=== PATIENT | male | born 1955 | race Caucasian/White ===

== ENCOUNTER 2024-06-15 14:28 | Outpatient (AMB) | payer OTHER, SELFPAY ==
--- NOTE | 2024-06-15 14:32 | MHC.OFFVIS ---
Vital Signs 06/15/24 14:34 Height 5 ft 6 in Weight 236 lb BMI 38.1 BP 163/77 H Blood Pressure Location Lt brachial Position Sitting Respiration 16 Pulse 68 Pulse Source Pulse Oximeter Pulse Oximetry (%) 96 Oxygen Delivery Method Room Air Intake Visit Reasons: Low back pain Health Promoter Required: No Health Promoter Name: Dr. Munoz speaks [place] Allergies tramadol Adverse Reaction (Severe, Verified 06/15/24 14:36) Itching Medication List - Last Reconciled 06/15/24 by Daina Oscar, SALVATORE ibuprofen 200 mg PO Q6H PRN losartan 25 mg PO DAILY HPI Comments Details: Wesley is very pleasant [place]-speaking 69 years old gentleman who presents in my office today with complains on [id number] lower back pain severe pain in the suprapubic area associated with sitting. He reports his pain is suprapubic area is bothering him the most. He denies any pain while standing or laying down. He denies association of his pain with urination or defecation. Denies pain increase with straining down. He reports that if he sits for 15-20 minutes his pain is 4 to 5/10. With longer sitting his pain will become 8 to 9/10. He is able to sleep normally, he can not do activities of daily living. He is able to take care of himself but he can not function normally. He is retired individual. He reports that movements aggravate his pain. In terms of tissue damage he reports his pain as stabbing, cramping, dull, tight, sensation. She was evaluated by urologists, he was sent for the CT scan of the abdomen and pelvis with and without contrast results of the dictated as below. Hypertrophy of the bladder wall was suspected on that CT scan, there is also small umbilical hernia dictated. Urologist did also cystoscopy results of which are not available for me however he states that cystoscopy was not demonstrating anything. He wants to go for 2nd opinion with the [facility] [place]. He never had an MRI of the abdomen or lower back. He never had an x-ray of the lower back. He never had any injections to alleviate his pain. His past medical history significant for headaches, hypertension, dizziness and fainting. His surgical history significant for hemorrhoids rotator cuff repair and skin cancer on the face surgery. He denies smoking cigarettes denies drinking alcohol denies caffeinated beverages and denies recreational drugs. Review of Systems Const Reports as per HPI ENT Reports Normal hearing present Card Reports no additional complaints Resp Reports no additional complaints GI Reports no additional complaints Reports as per HPI Musc Reports as per HPI Neuro Reports no additional complaints, Reports Normal hearing present, Denies Abnormal speech present, Denies confusion and Denies Sensory deficit (Neuro) Psych Reports no additional complaints and Denies confusion Physical Exam Vital Signs: Last Vital Signs Pulse 68 06/15/24 14:34 Resp 16 06/15/24 14:34 BP 163/77 H 06/15/24 14:34 Pulse Ox 96 06/15/24 14:34 Oxygen Delivery Method Room Air 06/15/24 14:34 BMI result Body Mass Index 38.1 Const General: no acute distress; No confusion Nutritional Appearance: obese morbidly obese Orientation/consciousness: patient oriented x3 and No confusion Eyes General: appearance normal, both eyes and all related structures Pupils: Equal, round and reactive pupils present EOM: EOMs intact bilaterally Neck Neck: Yes full ROM Chest Chest palpation & inspection: normal inspection of the chest Resp Effort & Inspection: normal respiratory effort, able to speak in complete sentences, normal respiratory pattern, no audible wheezes and no cough Cardio Jugular venous distension: no JVD GI Other: On inspection there is diastasis of the rectus muscles in the upper portion of the abdominal cavity. There is a small umbilical hernia on palpation of the umbilicus and there is also significant sensation of the pushing with straining and coughing in the projection of the bilateral inguinal canal. Neuro General: patient oriented x3, gait normal and No confusion Cranial nerves: Yes CN's II-XII intact bilaterally, Yes Equal, round and reactive pupils present, Yes Normal hearing present and Yes Ability to bilaterally elevate shoulders present Speech: No Abnormal speech present Gait exam (Neuro): Normal gait present Motor exam (neuro): 5/5 motor strength present throughout Sensory Exam: No Sensory deficit (Neuro) Extrem General: No pedal edema Psych Speech and movement: Normal speech and movement present Affect: normal affect Attitude: cooperative Thought process: Normal thought process present Thought content: Normal thought content present Insight: Good insight present (Psych) Judgement: Good judgement present (Psych) Results Reviewed Results Reviewed: CT abdomen and pelvis with and without IV contrast 02/11/2023. 67 years old with microscopic hematuria. Findings: Renal calculi: None, renal mass none, ureteral distension and contrast opacification adequate what urethral distention and contrast opacification. None of urethral masses of filling defects, Urinary bladder: No mass, calculi or blood clot. Mild diffuse apparent wall thickening of the urinary bladder wall is likely due to under distention versus bladder hypertrophy. Lung bases: Mild bilateral dependent atelectasis. No pleural effusion. Normal heart size. No pericardial effusion. Liver: Normal in attenuation and morphology. No suspicious lesions. Gallbladder no CT evidence of gallbladder pathology. Bile ducts no biliary duct dilatation. Spleen: Normal in size. Pancreas: Few scattered calcifications along the pancreatic head and body, probably a sequela of chronic pancreatitis. Adrenal glands: No nodule. Reproductive organs: Prostate gland is normal in size with few scattered coarse calcifications, nonspecific. Seminal vesicles unremarkable. Stomach, small bowel, and large bowel: Stomach and small bowel within normal limits. Apparent diffuse circumferential thickening of the hepatic flexure of the colon could be partially due to under distention however and underlying inflammatory versus less likely neoplastic process is not excluded. Correlation with recent colonoscopy recommended. Appendix not seen but no evidence of acute appendicitis. Peritoneum and retro. A new no ascites or pneumoperitoneum. No omental or mesenteric lesions. Lymph nodes no enlarged lymph nodes. Blood vessels: Mild vascular calcifications. 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 cm in diameter on each side. No evidence of venous thrombosis. Abdominal and pelvic wall soft tissues: Tiny fat containing of umbilical hernia Bones no acute abnormality. Impression no CT evidence of calculi or abnormal filling defect in bilateral kidneys ureter or urinary bladder to explained patient microscopic hematuria. Diffuse circumferential thickening of hepatic flexure of the colon without associated fat stranding is nonspecific and although could be due to under distention can not exclude underlying inflammatory or neoplastic process. Correlation with recent colonoscopy recommended. Mild diffuse apparent thickening of the urinary bladder wall maybe due to under distention and or bladder hypertrophy. 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 Assessment & Plan Assessment & Plan (1) Low back pain: Code(s): M54.50 - Low back pain, unspecified Category: Medical (2) Suprapubic abdominal pain: Code(s): R10.2 - Pelvic and perineal pain Category: Medical (3) Bladder wall thickening: Code(s): N32.89 - Other specified disorders of bladder Category: Medical (4) Microhematuria: Code(s): R31.29 - Other microscopic hematuria Category: Medical (5) Inguinal hernia bilateral, non-recurrent: Code(s): K40.20 - Bilateral inguinal hernia, without obstruction or gangrene, not specified as recurrent Category: Medical Plan I will send this patient for the x-ray of the lumbar spine. I also will send this patient for urological 2nd opinion. Because of his umbilical hernia and possible bilateral inguinal hernia will send him for surgical consult to [facility] [place].. I also will send him for PSA lab work. He will sign medical information release note today and we will obtain information from his prior urologist office. If all this investigational lab work and studies will go out negative for suprapubic pain I will offer him a trial of the Nevro spinal cord stimulator to help his suprapubic pain.. Orders: Orders PSA,Total (Free>4and<10) Today R10.2 - Pelvic and perineal pain, R31.29 - Other microscopic hematuria XR lumbar spine 6V w bending Today M54.50 - Low back pain, unspecified Referrals Urology Referral N32.89 - Other specified disorders of bladder, R10.2 - Pelvic and perineal pain, R31.29 - Other microscopic hematuria General Surgery Referral K40.20 - Bilateral inguinal hernia, without obstruction or gangrene, not specified as recurrent Patient Instructions: I here by testify that I spent 45 minutes in conversation with this patient as well as evaluating prior records, planning his here and organizing this note. Coding Level of Care Code New Pt Level 4 (12519) Diagnoses Low back pain M54.50 Suprapubic abdominal pain R10.2 Bladder wall thickening N32.89 Microhematuria R31.29 Inguinal hernia bilateral, non-recurrent K40.20
[2024-06-15 14:34] VITALS: BP 163/77; PULSE 68; RESP 16; O2SAT 96; BMI 38.1
--- OUTSIDE RECORDS SUMMARY | 2024-06-15 17:14 | XMS_ITS | Clinical Summary ---
Author Organization [facility] Address [address] [place] [address] Care Team Providers Care Corporate Coordinator Name Role Phone Sowmya Odom PA-C Primary Care Provider [phone] Source Comments PLEASE NOTE, if this patient is a minor, it may be UNLAWFUL to discuss sensitive information that is contained in these records (such as FAMILY PLANNING, MENTAL HEALTH or SUBSTANCE ABUSE) with the minor patient's parent or other person without the patient's specific authorization.[facility] Allergies Active Allergy Reactions Criticality Noted Date Comments Tramadol Itching 02/17/2013 Medications miscellaneous medical supply miscIndications:Ch ronic low back pain without sciatica, unspecified back pain laterality by miscellaneous route 2 (two) times daily SALONPAS pain relieving patch LARGE, disp 60 patches/month, dx lumbar and hip neuralgia, fax to medline 60 Each 11 07/19/19 20 Active miscellaneous medical supply miscIndications:Ch ronic midline low back pain without sciatica by miscellaneous route once daily dx lumbar disc disease M54.5, bed assist handle 1 Each 04/23/19 21 Active miscellaneous medical supply miscIndications:Ch ronic midline low back pain without sciatica by miscellaneous route once daily dx lumbar disc disease M54.5, single point cane 1 Each 04/23/19 21 Active miscellaneous medical supply miscIndications:Ch ronic midline low back pain without sciatica by miscellaneous route once daily Suction cup grab bars for the shower, disp 2, dx lumbar disc disease M54.5 2 Each 04/23/19 21 Active miscellaneous medical supply miscIndications:Ch ronic low back pain without sciatica, unspecified back pain laterality by miscellaneous route once daily Sacroiliac Joint Belt, disp 1, dx low back pain/SI joint dysfunction, lifetime need 1 Each 07/19/19 21 Active olmesartan (BENICAR) 20 mg tabletIndications: Essential hypertension, benign Take 1 Tablet by mouth nightly at bedtime 90 Tablet 1 04/03/19 24 Active rosuvastatin (CRESTOR) 10 mg tabletIndications: Mild hyperlipidemia Take 1 Tablet by mouth once daily 90 Tablet 1 10/19/19 24 Active MISCELLANEOUS MEDICAL SUPPLY MISC by miscellaneous route daily. Personal care wipes, vrra847/month, dx bowel and bladder care 200 Each 12/25/19 24 Active MISCELLANEOUS MEDICAL SUPPLY MISCIndications:Mi xed incontinence by miscellaneous route daily. Adult pull ups disp 120/month, dx mixed incontinence 120 Each 12/25/19 24 Active MISCELLANEOUS MEDICAL SUPPLY MISCIndications:Mi xed incontinence by miscellaneous route daily. Large gloves, [id number]/month, dx mixed incontinence 100 Each 12/25/19 24 Active ketoconazole (NIZORAL) 2 % shampooIndications :Tinea versicolor Apply topically once daily as needed for itching 120 mL 6 01/28/20 24 Active MISCELLANEOUS MEDICAL SUPPLY MISCIndications:Ch ronic low back pain without sciatica, unspecified back pain laterality by miscellaneous route daily. Juve cruz, disp 60/month, dx osteoarthritis, [facility] fax [phone]. 60 Each 01/28/20 24 Active Active Problems Problem Noted Date Diagnosed Date First degree AV block on EKG 01/202304/03/2023 Essential hypertension, benign 07/19/2019 Non morbid obesity 05/10/2018 Pulmonary nodule, left on CX R 03/02/2017 [facility] 03/17/2017 Rotator cuff tear, right, [facility] Dr. Higginbotham 03/201504/17/2015 History of Lyme disease 08/02/2014 Low back pain with right radiculopathy,MRI 4 04/26/2014 Overview (04/26/2014): Result type: MRI Lumbar Spine W/O Contrast Result date: 05 Aug 2013 7:35 Result status: Auth (Verified) Result title: MRI Lumbar Spine W/O Contrast Performed by: Trupti Arauz MD on 05 Aug 2013 12:14 Verified by: Trupti Arauz MD on 05 Aug 2013 12:14 Encounter info: [id number], [facility], 08/05/2013 - * Final Report * Reason For Exam LBP with right lateral LE pain/Numbness;LBP with right lateral LE pain/Numbness RESULT: MRI Lumbar Spine W/O Contrast [facility] VISIT NUMBER :[id number] PATIENT NAME : Sandy Spencer DATE OF : 1955 DATE OF EXAM : 08/05/2013 REFERRING PHYSICIAN : [facility] [address] [place] [address] RESULTS PREFERENCE : Reports via Fax to [phone]. Images on CD via Mail. 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 EXAM : MR - LUMBAR SPINE (C-) CPT 17731 - Final Report HISTORY: Lower back pain with right leg pain and paresthesias. COMPARISON: MRI of the lumbar spine, 03/30/2007. FINDINGS: There is very slight levoscoliosis of the mid lumbar spine. Alignment and curvature are otherwise normal. Vertebral body heights are preserved. There is disc desiccation from L2 to S1 with minimal disc space narrowing at L5-S1. Small multilevel anterior osteophytes are noted. Focal Modic type I endplate changes are seen at L4-L5 toward the right. Remaining marrow signal is unremarkable. The conus ends at L1-L2. At L1-L2 there is no significant canal stenosis or neural foraminal stenosis. At L2-L3 there is minimal disc bulging and facet spurring without significant canal stenosis. A broad-based left foraminal protrusion is seen with annular tear resulting in mild left neural foraminal stenosis. At L3-L4 there is a minimal diffuse disc bulge and mild facet spurring without significant canal stenosis. A small right foraminal protrusion is seen with annular tear resulting in mild to moderate right neural foraminal stenosis. Minimal left neural foraminal stenosis is also noted. At L4-L5 there is a diffuse disc bulge with a small right paracentral protrusion with annular tear. There is no significant canal stenosis though there may just be contact of the descending right L5 nerve root in the lateral recess. Mild bilateral facet spurring is also seen contributing to mild bilateral neural foraminal stenosis. At L5-S1 there is a diffuse disc bulge with left paracentral annular tear and facet spurring without significant canal stenosis. Marginal osteophyte contributes to moderate left neural foraminal stenosis with contact of the exiting left L5 nerve root. The visualized retroperitoneal soft tissues are unremarkable. IMPRESSION: Stable multilevel degenerative changes compared to 2008. Please see detailed levels above. ----- PHYSICIAN : TRUPTI ARAUZ MD (Signature on file) 08/05/2013 Signature Line Dictated By: Trupti Arauz MD Dictated Date/Time: 08/05/13 12:14 p Reviewed By: Trupti Arauz MD Signed By: Trupti Arauz MD Signed Date/Time: 08/05/13 12:14 pm Transcribed By: TS Transcribed Date/Time: 08/05/13 12:14 pm MRI Lumbar Spine W/O Contrast This document has an image Right lower leg neuropathy with negative EMG 11/1504/26/2014 Overview (04/26/2014): Result type: Electromyogram/Nerve Conduction Study Result date: 16 November 2013 15:08 Result status: Modified Result title: EMG Nerve Conduction Study Performed by: Yaron Valdez MD on 16 November 2013 15:08 Verified by: Yaron Valdez MD on 16 November 2013 22:19 Encounter info: [id number], [facility] [place] [facility], 11/16/2013 - 11/16/2013 Contributor system: [employer] * Final Report * EMG Nerve Conduction Study (Verified) [facility] ELECTROMYOGRAPHY REPORT Referring Provider: Yeyo Pascal M.D. EMG Physician: Yaron Valdez M.D. ditch digger: SHREYA Date of Study: 11/16/2013 Limb Temperature: Warmed with hot packs to greater than 34?? C Height: 5' 8 Weight: 190 lbs Order ID: [id number] IMPRESSION: The study is normal. There is no evidence of a right midlumbar to upper sacral radiculopathy, plexopathy or distal right lower extremity polyneuropathy. 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 He has right lower back pain that radiates down his right leg and right foot burning discomfort. Examination shows normal strength. Patellar and Achilles tendon reflexes are symmetrical. Light touch sensation is diminished over his entire right leg compared to his left leg. The study is requested for evaluation of a right lumbosacral radiculopathy. Comparison normal nerve conduction values, nerve conduction tables and waveforms, and muscle table are included with the complete printed report. Selected left side testing was performed for the purpose of comparison to the right side. A Haitian construction code administrator was present during testing. His granddaughter, Evette, was present during the procedure. SUMMARY: The right peroneal and tibial motor distal latencies, distal amplitudes and nerve conduction velocities are normal. The right peroneal across fibula nerve conduction velocity is normal. The right peroneal and tibial minimum F response latencies are normal. The right tibial minimum H reflex latency is normal. There is no significant interside difference compared to the left side. The right sural and superficial peroneal antidromic sensory amplitudes and peak distal latencies are normal (the left superficial peroneal amplitude and peak distal latency are normal and there is no significant comparison interside asymmetry. Concentric needle EMG testing was performed of proximal and distal right leg muscles including those innervated by L2-S1 nerve roots. The right L3-S1 paraspinal muscles were examined. Insertional activity is normal. There is no abnormal spontaneous activity. Motor unit potential recruitment and activation patterns are normal. Motor unit potential configurations are normal. There is no evidence of denervation or reinnervation. The procedure was well tolerated, there were no complications, and he appeared well upon completion of the procedure. Dictated by: Yaron Valdez M.D. Signing Clinician: Yaron Valdez M.D. Dictated: 11/16/2013 15:08:23 Transcribed: 11/16/2013 18:53:00 Transcribed by: EMERALD DocID: [id number] PRELIMINARY REPORT UNLESS MANUALLY/ELECTRONICALLY SIGNED CC:Obed Chavira M.D. [facility] [address] [place] [address], [id number] Yeyo Pascal M.D. [address], [address] [place], [address] S/P colonoscopy 200604/26/2014 Overview (04/26/2014): Result type: Special Procedure/Gastro Note Result date: 09 July 2006 1:45 Result status: Auth (Verified) Result title: NOTE Encounter info: [id number], [facility] [place] [facility], 07/09/2006 - 07/09/2006 Contributor system: [employer] * Final Report * NOTE Colonoscopy Report Endoscopist(s): Ronaldo Lam MD Date: June Ref. Phys.: GALINA MURRIETA MD; Juan Luis Osman MD Patient: SNADY SPENCER Assisting Nurse(s)/ Other Personnel: Cat Concepcion RN (RN) RICHARD Doan (test design engineer) Instrument: [id number] ([id number]) Date: 1955 (51 years) Account: [id number] History: Please see office H&P Medications: Meperidine 50mg Midazolam 3mg Indications: Screening Colonoscopy Procedure: The procedure, indications, preparation and potential complications were explained to the patient, who indicated his understanding and signed the corresponding consent forms. The patient was administered moderate sedation. The patient was placed in the left lateral decubitus position and the colonoscope was introduced through the rectum and advanced under direct visualization until the cecum was reached. Careful visualization of the colon was performed as the colonoscope was withdrawn. The colonoscope was retroflexed within the rectum. The procedure was not difficult. The quality of the preparation was suboptimal. Visualization of the cecum and proximal ascending colon was poor. The patient tolerated the procedure well. The digital exam was abnormal. Internal hemorrhoids. There were no complications. Findings: Protruding Lesions Large non-bleeding grade 1 internal hemorrhoids were noted. Other Unable to examine the cecum and proximal ascending colon due to poor prep and inability to advance the scope due to a long, tortuous colon. Impression: Grade 1 internal hemorrhoids Otherwise normal colonoscopy to cecum Recommendations: Would obtain ACBE to clear thr ight colon. If normal then repeat colon in 10 years, if abnormal would re-attempt colonoscopy with Double balloon enteroscope to achieve cecal intubation. Ronaldo Lam MD Case documented on 07/09/2006 12:58:26 PM Patient: SANDY SPENCER ([id number] ) Encounters Date Type Department Care Team Description 04/27/2024 7:40 AM EST Telemedicine Visit [address] [address] Sowmya Odom PA-C First degree AV block on EKG 01/2023 (Primary Dx); Essential hypertension, benign; Non morbid obesity; Chronic low back pain without sciatica, unspecified back pain laterality; History of Lyme disease; Labile blood pressure; Atypical chest pain; Mild vitamin D deficiency; Microhematuria from Last 3 Months Social History Tobacco Use Types Packs/Day Years Used Date Smoking Tobacco: Never Smokeless Tobacco: Never Tobacco Cessation:Counseling Given: Not Answered Alcohol Use Standard Drinks/Week Comments No 0 (1 standard drink = 0.6 oz pur e alcohol) Social Connections Answer Date Recorded Connectedness 1 04/27/2024 Financial Resource Strain Answer Date R ecorded Financial Resource Strain 1 2024 Stress Answer Date Recorded Stress 1 04/27/2024 Physical Activity Answer Date Recorded Physical Activity 0 11/06/2018 Food Insecurity Answer Date Recorded Food 1 04/27/2024 Transportation Needs Answer Date Record ed Transportation 1 04/27/2024 Housing Stability Answer Date Recorded Housing 1 04/27/2024 Safety and Environment Answer Date Spencer rded Safety 0 01/21/2023 Utilities Answer Date Recorded Utilities 1 04/27/2024 Employment Answer Date Recorded Employment 0 11/06/2018 Sex and Gender Information Value Date Recorded Sex Assigned at Male 06/16/2017 8:31 AM PDT Legal Sex Male 11:36 AM PDT Gender Identity Male 06/16/2017 8:31 AM PDT Sexual Orientation Straight 06/16/2017 8: 31 AM PDT Last Filed Vital Signs Vital Sign Reading Time Taken Comments Blood Pressure 112/70 09/08/2023 1:07 PM EDT Pulse 58 09/08/2023 1:07 PM EDT Temperature 36.7 ??C (98 ??F) 09/08/2023 1:07 PM EDT Respiratory Rate 16 09/08/2023 1:07 PM EDT Oxygen Saturation 98% 09/08/2023 1:07 PM EDT Inhaled Oxygen Concentration - - Weight 98.4 kg (217 lb) 09/08/2023 1:07 PM EDT Height 170.2 cm (5' 7 ) 09/08/2023 1:07 PM EDT Body Mass Index 33.99 09/08/2023 1:07 PM EDT Plan of Treatment Health Maintenance Due Date Last Done Comments CT Colonography 1998 Fecal DNA 1998 Flexible Sigmoidoscopy 1998 Imm-Pneumococcal 65+ (1 of 1 - PCV) 05/22/2003 Imm-Zoster, Recombinant (1 of 2) 05/22/2003 FIT/gFOBT 05/10/2014 05/10/2013 (Declined) Falls Prevention 2018 Imm-Influenza (#1) 2023 04/26/2014 (D eclined), 05/10/2013 (Declined) Medicare Annual Wellness Visit 04/03/2024 0 04/03/2023, 08/29/2021, 08/02/2014 Lipid Screening 09/07/2024 09/08/2023, 05/14, 08/29/2021, Additional history exists Tobacco Screening 04/27/2025 04/27/2024, , 05/23/2022 Imm-DTaP/Tdap/Td (2 - Td or Tdap) 02/16/2026 016 Diabetes Screening 09/07/2026 09/08/2023, 1 , 08/29/2021, Additional history exists Colonoscopy 03/24/2033 03/24/2023 Colorectal Cancer Screening 03/24/2033 Hepatitis C Screening Completed 05/14/2013 Alcohol and Drug Screen Completed 04/27/19, 04/03/2023, 01/20/2023, Additional history exists Depression Annual Screen Completed 025, 04/26/2014 (Declined) [id number] Discontinued Procedures Procedure Name Priority Date/Time Associated Diagnosis Comments COMPREHENSIVE METABOLIC PANEL Routine 09/08/2023 1:27 PM EDT Suprapubic pain Bladder wall thickening Chronic low back pain without sciatica, unspecified back pain laterality Non morbid obesity LIPID PANEL Routine 09/08/2023 1:27 PM EDT Suprapubic pain Bladder wall thickening Chronic low back pain without sciatica, unspecified back pain laterality Non morbid obesity HISTORIC COLONOSCOPY 03/24/2023 3:00 AM EST HEPATITIS A,B,C PANEL Routine 05/14/2013 9:18 AM EST Dizziness from Last 3 Months or Most Recently Relevant to Health Maintenance Results * (ABNORMAL) LIPID PANEL (09/08/2023 1:27 PM EDT) Pathologist [facility] CHOLESTEROL, TOTAL 228(H) <200 mg/dL [facility] HDL CHOLESTEROL 41 > OR = 40 mg/dL [facility] TRIGLYCERIDES 182(H) <150 mg/dL [facility] LDL-CHOLESTEROL 155(H) 99 mg/dL (calc) [facility] Comment: Reference range: <100 Desirable range <100 mg/dL for primary prevention; ?? <70 mg/dL for patients with CHD or diabetic patients with > or = 2 CHD risk factors. LDL-C is now calculated using the Eliezer-Aron calculation, which is a validated novel method providing better accuracy than the Friedewald equation in the estimation of LDL-C. Eliezer SS et al. JACOB. 2013;310(19): 5991-3586 (http://education.AdReady/faq/NPR811) CHOL/HDLC RATIO 5.6(H) <5.0 (calc) [facility] NON-HDL CHOLESTEROL 187(H) <130 mg/dL (calc) [facility] Comment: For patients with diabetes plus 1 major ASCVD risk factor, treating to a non-HDL-C goal of <100 mg/dL (LDL-C of <70 mg/dL) is considered a therapeutic option. Blood Blood / Unknown 09/08/2023 1 :27 PM EDT 09/08/2023 1:28 PM EDT Narrative [employer] [facility] - 09/09/2023 3:52 AM EDT FASTING:NO us Sowmya Odom PA-C LAB - BLOOD DRAW Final Resul t [facility] [address] [address], [employer] [facility] [address] [place] [address] * COMPREHENSIVE METABOLIC PANEL (09/08/2023 1:27 PM EDT) [facility] GLUCOSE 91 65 - 139 mg/dL [employer] [facility] Comment: ?Non-fasting reference interval UREA NITROGEN (BUN) 11 7 - 25 mg/dL [employer] [facility] CREATININE (blood) 1.24 0.70 - 1.28 mg/dL [facility] EGFR 63 > OR = 60 mL/min/1. 73m2 [facility] BUN/CREATININE RATIO SEE NOTE: [employer] [facility] Comment: ?? Not Reported: BUN and Creatinine are within ?? reference range. ? SODIUM 140 135 - 146 mmol/L [facility] POTASSIUM 4.7 3.5 - 5.3 mmol/L [facility] CHLORIDE 106 98 - 110 mmol/L [facility] CARBON DIOXIDE 29 20 - 32 mmol/L [facility] CALCIUM 9.6 8.6 - 10.3 mg/dL [facility] PROTEIN, TOTAL 7.1 6.1 - 8.1 g/dL [facility] ALBUMIN 4.2 3.6 - 5.1 g/dL [facility] GLOBULIN 2.9 1.9 - 3.7 g/dL (calc) [facility] ALBUMIN/GLOBULI N RATIO 1.4 1.0 - 2.5 (calc) [facility] BILIRUBIN, TOTAL 0.4 0.2 - 1.2 mg/dL [facility] ALKALINE PHOSPHATASE 71 35 - 144 U/L [employer] [facility] AST 12 10 - 35 U/L [employer] [facility] ALT 10 9 - 46 U/L [facility] Blood Blood / Unknown 09/08/2023 1 :27 PM EDT 09/08/2023 1:28 PM EDT Narrative [facility] - 09/09/2023 3:52 AM EDT FASTING:NO Sowmya Odom PA-C LAB - BLOOD DRAW Edited Resu lt - Final [facility] [address] [address], [place] [facility] [address] [place] [address] * HISTORIC COLONOSCOPY (03/24/2023 3:00 AM EST) 03/24/2023 3:00 AM EST Sowmya Odom PA-C PROCEDURES Final Result * (ABNORMAL) HEPATITIS A,B,C PANEL (05/14/2013 9:18 AM EST) HEPATITIS B SURFACE ANTIBODY NEGATIVE NEGATIVE [facility] HEPATITIS B SURFACE ANTIGEN NEGATIVE NEGATIVE [facility] HEPATITIS C VIRUS ANTIBODY NEGATIVE NEGATIVE [facility] HEPATITIS A ANTIBODY TOTAL POSITIVE(A) NEGATIVE [facility] HEPATITIS B CORE ANTIBODY NEGATIVE NEGATIVE [facility] Blood specimen (specimen) Blood / Unknown 05/14/2013 9:18 AM EST 05/14/2013 9:18 AM EST Narrative [facility] - 05/16/2013 8:53 AM EST [employer] [address] [place] [address] PT ID [id number] ORD# [id number] Sowmya Odom PA-C LAB - BLOOD DRAW Edited [email or web address] [address] [place] [address], from Last 3 Months or Most Recently Relevant to Health Maintenance Insurance [facility] Member Subscriber Plan / Payer (Ef fective 2018-Present) Name:Sandy Spencer Relation to Subscriber:Self Name:Sandy Spencer Payer ID:[id number] Group ID:Not on file Type:Indemnity Address: [facility] [address] [address] Care Teams Corporate Coordinator Relationship Specialty Start Date End Date Sowmya Odom PA-C [address] [place] [address] PCP - General Internal Medicine 05/10/13
== END 2024-06-15 15:01 | disposition home or self-care (01) ==
LOC: HO.PMC 14:28
PROVIDERS: PCP Physician Assistant; Referring Provider Physician Assistant; Visit Provider Anesthesiology
DX: M54.50 Low back pain, unspecified (principal); R10.2 Pelvic and perineal pain; N32.89 Other specified disorders of bladder; R31.29 Other microscopic hematuria; K40.20 Bilateral inguinal hernia, without obstruction or gangrene, not specified as recurrent
CPT/HCPCS: 99204

== ENCOUNTER → 2024-06-15 14:28 | Outpatient (BNVA) | payer OTHER, SELFPAY | PROVIDERS: PCP Physician Assistant; Referring Provider Physician Assistant; Visit Provider Anesthesiology | DX: M54.50 Low back pain, unspecified (principal); R10.2 Pelvic and perineal pain; N32.89 Other specified disorders of bladder | CPT/HCPCS: 99202 ==

== ENCOUNTER 2024-08-03 09:53 | Outpatient (REF) | payer OTHER, SELFPAY ==
--- NOTE | ~2024-08-03 | XR_ITS ---
CLINICAL HISTORY: M54.50 - Low back pain, unspecified 9 views lumbar spine Comparison: None Findings: Mild convex left mid lumbar curvature on the AP view. Neutral lateral view demonstrates anatomic alignment. No abnormal motion with flexion or extension. Dkhr-ic-khvwbhmq multilevel degenerative disc disease with moderate to severe multilevel degenerative facet disease. This is most extensive at L4-5 and L5-S1. Bones are osteopenic. No fracture. IMPRESSION: 1. Multilevel degenerative disc disease and degenerative facet disease as above. 2. No abnormal motion. This document has been electronically signed by: Shaq Medina MD on 08/04/2024 10:05:21
--- OUTSIDE RECORDS SUMMARY | 2024-08-03 12:01 | XMS_ITS | Clinical Summary ---
Author Organization [facility] Address [address] [place] [address] Care Team Providers Care Physician Specialist Name Role Phone Sowmya Odom PA-C Primary Care Provider [phone] Source Comments PLEASE NOTE, if this patient [...] by miscellaneous route daily. Personal care wipes, lirr265/month, dx bowel and bladder care 200 Each 12/25/19 24 Active MISCELLANEOUS MEDICAL SUPPLY MISCIndications:Mi xed incontinence by miscellaneous route daily. Adult pull ups disp 120/month, dx mixed incontinence 120 Each 12/25/19 24 Active MISCELLANEOUS MEDICAL SUPPLY MISCIndications:Mi xed incontinence by miscellaneous route daily. Large gloves, ojsy222/month, dx mixed incontinence 100 Each 12/25/19 24 Active ketoconazole (NIZORAL) 2 % shampooIndications :Tinea versicolor Apply topically once daily as needed for itching 120 mL 6 01/28/20 24 Active MISCELLANEOUS MEDICAL SUPPLY MISCIndications:Ch ronic low back pain without sciatica, unspecified back pain laterality by miscellaneous route daily. Juve cruz, disp 60/month, dx osteoarthritis, [facility] fax [phone]. 60 Each 01/28/20 24 Active Active Problems Problem Noted Date Diagnosed Date First degree AV block on EKG 01/202304/03/2023 Essential hypertension, benign 07/19/2019 Non morbid obesity 05/10/2018 Pulmonary nodule, left on CX R 03/02/2017 [facility] 03/17/2017 Rotator cuff tear, right, [...] on 05 Aug 2013 12:14 Encounter info: [id number], [facility], [facility], 08/05/2013 - * Final Report * Reason For Exam LBP with right lateral LE pain/Numbness;LBP with right lateral LE pain/Numbness RESULT: MRI Lumbar Spine W/O Contrast [facility] VISIT NUMBER :[id number] PATIENT NAME : Sandy Spencer DATE OF : 1955 DATE OF EXAM : 08/05/2013 REFERRING PHYSICIAN : [facility] [address] [place] [address] RESULTS PREFERENCE : Reports via Fax to [phone]. Images on CD via Mail. 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 EXAM : MR - LUMBAR SPINE (C-) CPT 60459 - Final Report HISTORY: Lower back pain [...] on 16 November 2013 22:19 Encounter info: [id number], [facility] [place] [facility], [facility], 11/16/2013 - 11/16/2013 Contributor system: NUANCE * Final Report * EMG Nerve Conduction Study (Verified) [facility] ELECTROMYOGRAPHY REPORT Referring Provider: Yeyo Pascal M.D. EMG Physician: Yaron Valdez M.D. threading machine setter: SHREYA Date of Study: 11/16/2013 Limb Temperature: Warmed with hot packs to greater than 34?? C Height: 5' 8 Weight: 190 lbs Order ID: [id number] IMPRESSION: The study is normal. There is no evidence of a right midlumbar to upper sacral radiculopathy, plexopathy or distal right lower extremity polyneuropathy. 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 He has right lower back [...] of comparison to the right side. A Vincentian tier lift truck operator was present during testing. His granddaughter, [...] Transcribed: 11/16/2013 18:53:00 Transcribed by: EMERALD DocID: [id number] PRELIMINARY REPORT UNLESS MANUALLY/ELECTRONICALLY SIGNED CC:Obed Chavira M.D. [facility] [address] [place] [address], [address] Yeyo Pascal M.D. [address], [address] [place], [address] S/P colonoscopy 200604/26/2014 Overview (04/26/2014): Result type: Special Procedure/Gastro Note Result date: 09 July 2006 1:45 Result status: Auth (Verified) Result title: NOTE Encounter info: [id number], [facility] [place], [facility], 07/09/2006 - 07/09/2006 Contributor system: [employer] * Final Report * NOTE Colonoscopy Report Endoscopist(s): Ronaldo Lam MD Date: June Ref. Phys.: GALINA MURRIETA MD; Juan Luis Osman MD Patient: SANDY SPENCER Assisting Nurse(s)/ Other Personnel: Cat Concepcion RN (RN) RICHARD Doan (fruit dumper) Instrument: [id number]-160AL ([id number]) Date: 1955 (51 years) Account: [id number] History: Please see office H&P Medications: Meperidine [...] on 07/09/2006 12:58:26 PM Patient: SANDY SPENCER ([id number] ) Social History Tobacco Use Types Packs/Day [...] Depression Annual Screen Completed 025, 04/26/2014 (Declined) [id number] Discontinued Procedures Procedure Name Priority Date/Time Associated [...] PM EDT) CHOLESTEROL, TOTAL 228(H) <200 mg/dL [facility] HDL CHOLESTEROL 41 > OR = 40 mg/dL [facility] TRIGLYCERIDES 182(H) <150 mg/dL [facility] LDL-CHOLESTEROL 155(H) 99 mg/dL (calc) [facility] Comment: Reference range: <100 Desirable range <100 mg/dL for primary prevention; ?? <70 mg/dL for patients with CHD or diabetic patients with > or = 2 CHD risk factors. LDL-C is now calculated using the Eliezer-Sharp calculation, which is a validated novel method providing better accuracy than the Friedewald equation in the estimation of LDL-C. Eliezer SS et al. JACOB. 2013;310(19): 1296-2038 (http://education.Graphenea/faq/MKV452) CHOL/HDLC RATIO 5.6(H) <5.0 (calc) [facility] NON-HDL CHOLESTEROL 187(H) <130 mg/dL (calc) [facility] Comment: For patients with diabetes plus 1 major ASCVD risk factor, treating to a non-HDL-C goal of <100 mg/dL (LDL-C of <70 mg/dL) is considered a therapeutic option. Blood Blood / Unknown 09/08/2023 1 :27 PM EDT 09/08/2023 1:28 PM EDT Narrative [facility] - 09/09/2023 3:52 AM EDT FASTING:NO Sowmya Lukin PA-C LAB - BLOOD DRAW Final Resul t [facility] [address] [address], [facility] [address] [place] [address] * COMPREHENSIVE METABOLIC PANEL (09/08/2023 1:27 PM EDT) GLUCOSE 91 65 - 139 mg/dL [facility] Comment: ?Non-fasting reference interval UREA NITROGEN (BUN) 11 7 - 25 mg/dL [facility] CREATININE (blood) 1.24 0.70 - 1.28 mg/dL [facility] EGFR 63 > OR = 60 mL/min/1. 73m2 [facility] BUN/CREATININE RATIO SEE NOTE: [facility] Comment: ?? Not Reported: BUN and Creatinine are within ?? reference range. ? SODIUM 140 135 - 146 mmol/L [facility] POTASSIUM 4.7 3.5 - 5.3 mmol/L [facility] CHLORIDE 106 98 - 110 mmol/L [facility] CARBON DIOXIDE 29 20 - 32 mmol/L [facility] CALCIUM 9.6 8.6 - 10.3 mg/dL [facility] PROTEIN, TOTAL 7.1 6.1 - 8.1 g/dL [facility] ALBUMIN 4.2 3.6 - 5.1 g/dL [facility] GLOBULIN 2.9 1.9 - 3.7 g/dL (calc) [facility] ALBUMIN/GLOBULI N RATIO 1.4 1.0 - 2.5 (calc) [facility] BILIRUBIN, TOTAL 0.4 0.2 - 1.2 mg/dL [facility] ALKALINE PHOSPHATASE 71 35 - 144 U/L [facility] AST 12 10 - 35 U/L [facility] ALT 10 9 - 46 U/L [facility] Blood Blood / Unknown 09/08/2023 1 :27 PM EDT 09/08/2023 1:28 PM EDT Narrative [facility] - 09/09/2023 3:52 AM EDT FASTING:NO Sowmya Odom PA-C LAB - BLOOD DRAW Edited Resu lt - Final [facility] [address] [address], [facility] [address] [place] [address] * HISTORIC COLONOSCOPY (03/24/2023 3:00 AM EST) 03/24/2023 3:00 AM EST Sowmya Odom PA-C PROCEDURES Final Result * (ABNORMAL) HEPATITIS A,B,C PANEL (05/14/2013 9:18 AM EST) HEPATITIS B SURFACE ANTIBODY NEGATIVE NEGATIVE [facility] HEPATITIS B SURFACE ANTIGEN NEGATIVE NEGATIVE [facility] HEPATITIS C VIRUS ANTIBODY NEGATIVE NEGATIVE [facility] HEPATITIS A ANTIBODY TOTAL POSITIVE(A) NEGATIVE [facility] HEPATITIS B CORE ANTIBODY NEGATIVE NEGATIVE [facility] Blood specimen (specimen) Blood / Unknown 05/14/2013 9:18 AM EST 05/14/2013 9:18 AM EST Narrative [facility] - 05/16/2013 8:53 AM EST [employer] [address] [place] [address] PT [place] [id number] ORD# [id number] Sowmya Odom PA-C LAB - BLOOD DRAW Edited Performing Organization Address City/[facility]/ZIP Co de Phone Number [facility] [address] [place] [address], from Last 3 Months or Most Recently Relevant to Health Maintenance Insurance [facility] Member Subscriber Plan / Payer (Ef fective 2018-Present) Name:Sandy Spencer Relation to Subscriber:Self Name:Sandy Spencer Payer ID:[id number] Group ID:Not on file Type:Indemnity Address: [place] [address] [place] [address] Care Teams Physician Specialist Relationship Specialty Start Date End Date Sowmya Odom PA-C [address] [place] [address] PCP - General Internal Medicine 05/10/13
[2024-08-03 13:42] LABS: PSA,Total (Free>4and<10) 0.58 ng/mL (0.00-4.00)
[2024-08-03 14:59] LABS: Blood Urea Nitrogen 18 mg/dL (9-16); Estimated Glomerular Filt Rate 55
== END 2024-08-03 09:54 | disposition home or self-care (01) ==
LOC: HO.LAB 09:53
PROVIDERS: Absent Provider Anesthesiology; PCP Physician Assistant; Visit Provider Surgery
DX: R31.29 Other microscopic hematuria (principal); R10.2 Pelvic and perineal pain; M54.50 Low back pain, unspecified; Z12.5 Encounter for screening for malignant neoplasm of prostate
CPT/HCPCS: 36415; 72114; 82565; 84153; 84520; 99202

== ENCOUNTER 2024-08-03 09:53 | Outpatient (AMB) | payer OTHER, SELFPAY ==
--- NOTE | 2024-08-03 10:00 | A.OFFVIS_ITS ---
Intake Visit Reasons: possible hernia Intake Note: Patient referred by Dr. Munoz for possible hernia. Patient c/o: constant pain when sitting down. Bulge on abdomen noticeable. [facility] Abd/pelvis report: 02-11-2023 Fabric Stretcher Required: No Accompanied by: daughter Ingrid Allergies tramadol Adverse Reaction (Severe, Verified 08/03/24 10:06) Itching Medication List - Last Reconciled 08/03/24 by Vasiliy Donaldson MD ibuprofen 200 mg PO Q6H PRN losartan 25 mg PO DAILY HPI HPI possible hernia: Details: 69-year-old male referred for question of a hernia. He apparently has had suprapubic pain for a few years now. He had undergone a CAT scan in [facility] 2 years ago which did not reveal any pathology. There was mention of a small open umbilical hernia at that time The patient does not feel any palpable mass. However, he describes to his daughter that he has continued to have this suprapubic pain. He denies any dysuria. He used to have microscopic hematuria and according to daughter, he had been seen by a urologist already They are concerned about a hernia currently. Denies GI complaints. [facility] Medical History Herniated cervical disc Rotator cuff arthropathy HTN (hypertension) Surgical History H/O hemorrhoidectomy Social History Alcohol intake: never Patient Tobacco Use Status: Never used Tobacco Review of Systems Const Denies chills and Denies fever(s) Card Denies chest pain, Denies dyspnea and Denies dyspnea on exertion Resp Denies cough, Denies dyspnea and Denies dyspnea on exertion GI Denies hematochezia and Denies change in bowel habits Denies hematuria and Denies difficulty urinating Musc Denies back pain and Denies limited range of motion Neuro Denies focal weakness and Denies convulsions Psych Denies depression and Denies mood swings Physical Exam Const Other: Obese looking General: comfortable and no acute distress Orientation/consciousness: patient oriented x3 Neck Neck: Yes no lymphadenopathy Resp Auscultation: clear to auscultation bilaterally Cardio Rhythm: regular rhythm GI Other: No palpable hernia even with Valsalva Palpation (GI): Soft to palpation, nontender and no guarding Neuro General: patient oriented x3 Assessment & Plan Assessment & Plan (1) Suprapubic abdominal pain: Code(s): R10.2 - Pelvic and perineal pain Category: Medical Plan: The family is concerned about a hernia. Currently, physical exam does not reveal an inguinal hernia nor umbilical hernia. The patient has had chronic suprapubic pain so I am going to repeat his CAT scan with the IV contrast. I will see him again in the office after that. His daughter was comfortable with the plan. Orders: Orders CT abdomen pelvis w IV con Today R10.2 - Pelvic and perineal pain Blood Urea Nitrogen Today R10.2 - Pelvic and perineal pain Creatinine Today R10.2 - Pelvic and perineal pain Coding Level of Care Code New Pt Level 3 (81282) Diagnoses Suprapubic abdominal pain R10.2
--- OUTSIDE RECORDS SUMMARY | 2024-08-03 11:15 | XMS_ITS | Clinical Summary ---
Author Organization [facility] Address [address] [place] [address] Care Team Providers Care L D Rn Name Role Phone Sowmya Odom PA-C Primary Care Provider [phone] Source Comments PLEASE NOTE, if this patient [...] by miscellaneous route daily. Personal care wipes, [id number]/month, dx bowel and bladder care 200 Each 12/25/19 24 Active MISCELLANEOUS MEDICAL SUPPLY MISCIndications:Mi xed incontinence by miscellaneous route daily. Adult pull ups disp 120/month, dx mixed incontinence 120 Each 12/25/19 24 Active MISCELLANEOUS MEDICAL SUPPLY MISCIndications:Mi xed incontinence by miscellaneous route daily. Large gloves, [id number]/month, dx mixed incontinence 100 Each 12/25/19 24 Active ketoconazole (NIZORAL) 2 % shampooIndications :Tinea versicolor Apply topically once daily as needed for itching 120 mL 6 01/28/20 24 Active MISCELLANEOUS MEDICAL SUPPLY MISCIndications:Ch ronic low back pain without sciatica, unspecified back pain laterality by miscellaneous route daily. Juve cruz, disp 60/month, dx osteoarthritis, [facility] fax [phone]. 60 Each 01/28/20 24 Active Active Problems Problem Noted Date Diagnosed Date First degree AV block on EKG 01/202304/03/2023 Essential hypertension, benign 07/19/2019 Non morbid obesity 05/10/2018 Pulmonary nodule, left on CX R 03/02/2017 [facility] 03/17/2017 Rotator cuff tear, right, [...] on 05 Aug 2013 12:14 Encounter info: [id number], [facility], [facility], 08/05/2013 - * Final Report * Reason For Exam LBP with right lateral LE pain/Numbness;LBP with right lateral LE pain/Numbness RESULT: MRI Lumbar Spine W/O Contrast [facility] VISIT NUMBER :[id number] PATIENT NAME : Sandy Spencer DATE OF : 1955 DATE OF EXAM : 08/05/2013 REFERRING PHYSICIAN : [facility] [address] [place] [address] RESULTS PREFERENCE : Reports via Fax to [phone]. Images on CD via Mail. 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 EXAM : MR - LUMBAR SPINE (C-) CPT 61523 - Final Report HISTORY: Lower back pain [...] on 16 November 2013 22:19 Encounter info: [id number], [facility] [facility], 11/16/2013 - 11/16/2013 Contributor system: NUANCE * Final Report * EMG Nerve Conduction Study (Verified) [facility] ELECTROMYOGRAPHY REPORT Referring Provider: Yeyo Pascal M.D. EMG Physician: Yaron Valdez M.D. social economist: SHREYA Date of Study: 11/16/2013 Limb Temperature: Warmed with hot packs to greater than 34?? C Height: 5' 8 Weight: 190 lbs Order ID: [id number] IMPRESSION: The study is normal. There is no evidence of a right midlumbar to upper sacral radiculopathy, plexopathy or distal right lower extremity polyneuropathy. 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 He has right lower back pain that [...] of comparison to the right side. A Monegasque black top paver operator was present during testing. His granddaughter, Evette, [...] Dictated by: Yaron Valdez M.D. Signing Clinician: Yraon Valdez M.D. Dictated: 11/16/2013 15:08:23 Transcribed: 11/16/2013 18:53:00 Transcribed by: EMERALD DocID: [id number] PRELIMINARY REPORT UNLESS MANUALLY/ELECTRONICALLY SIGNED CC:Obed Chavira M.D. [facility] [address] [place] [address], [address] Yeyo Pascal M.D. [address], [address] [place], [address] S/P colonoscopy 200604/26/2014 Overview (04/26/2014): Result type: Special Procedure/Gastro Note Result date: 09 July 2006 1:45 Result status: Auth (Verified) Result title: NOTE Encounter info: [id number], [facility], 07/09/2006 - 07/09/2006 Contributor system: [employer] * Final Report * NOTE Colonoscopy Report Endoscopist(s): Ronaldo Lam MD Date: June Ref. Phys.: GALINA MURRIETA MD; Juan Luis Osman MD Patient: SANDY SPENCER Assisting Nurse(s)/ Other Personnel: Cat Concepcion RN (RN) RICHARD Doan (correctional supervisor) Instrument: PCF-160AL ([id number]) Date: 1955 (51 years) Account: [id number] History: Please see office H&P Medications: Meperidine [...] on 07/09/2006 12:58:26 PM Patient: SANDY SPENCER ([id number] ) Social History Tobacco Use Types Packs/Day Years [...] Health Maintenance Due Date Last Done Comments Medicare Annual Wellness Visit 05/22/1971 CT Colonography 1998 Fecal DNA 1998 Flexible Sigmoidoscopy 1998 Imm-Pneumococcal 65+ (1 of 1 - PCV) 05/22/2003 Imm-Zoster, Recombinant (1 of 2) 05/22/2003 FIT/gFOBT 05/10/2014 05/10/2013 (Declined) Falls Prevention 2018 Imm-Influenza (#1) 2023 04/26/2014 (D eclined), 05/10/2013 (Declined) Lipid Screening 09/07/2024 09/08/2023, 05/14, 08/29/2021, Additional history exists Tobacco Screening 04/27/2025 04/27/2024, , 05/23/2022 Imm-DTaP/Tdap/Td (2 - Td or Tdap) 02/16/2026 016 Diabetes Screening 09/07/2026 09/08/2023, 1 , 08/29/2021, Additional history exists Colonoscopy 03/24/2033 03/24/2023 Colorectal Cancer Screening 03/24/2033 Hepatitis C Screening Completed 05/14/2013 Alcohol and Drug Screen Completed 04/27/19 25, 04/03/2023, 01/20/2023, Additional history exists Depression Annual Screen Completed 025, 04/26/2014 (Declined) [id number] Discontinued Procedures Procedure Name Priority Date/Time Associated Diagnosis Comments CARD SCANNED DOCUMENT 06/14/2024 3:00 AM EDT COMPREHENSIVE METABOLIC PANEL Routine 09/08/2023 1:27 PM [...] Recently Relevant to Health Maintenance Results * CARD SCANNED DOCUMENT (06/14/2024 3:00 AM EDT) 06/14/2024 3:00 AM EDT Sowmya Odom PA-C SCAN ECGS Final Result * (ABNORMAL) LIPID PANEL (09/08/2023 1:27 PM EDT) CHOLESTEROL, TOTAL 228(H) <200 mg/dL [facility] HDL CHOLESTEROL 41 > OR = 40 mg/dL [facility] TRIGLYCERIDES 182(H) <150 mg/dL [facility] LDL-CHOLESTEROL 155(H) 99 mg/dL (calc) [facility] Comment: Reference range: <100 Desirable range <100 mg/dL for primary prevention; ?? <70 mg/dL for patients with CHD or diabetic patients with > or = 2 CHD risk factors. LDL-C is now calculated using the Eliezer-Sharp calculation, which is a validated novel method providing better accuracy than the Friedewald equation in the estimation of LDL-C. Eliezer SS et al. JACOB. 2013;310(19): 6633-3386 (http://education.Celletra/faq/TVE600) CHOL/HDLC RATIO 5.6(H) <5.0 (calc) [facility] NON-HDL CHOLESTEROL 187(H) <130 mg/dL (calc) [facility] Comment: For patients with diabetes plus 1 major ASCVD risk factor, treating to a non-HDL-C goal of <100 mg/dL (LDL-C of <70 mg/dL) is considered a therapeutic option. Blood Blood / Unknown 09/08/2023 1 :27 PM EDT 09/08/2023 1:28 PM EDT Narrative [facility] - 09/09/2023 3:52 AM EDT FASTING:NO Sowmya Lukin PA-C LAB - BLOOD DRAW Final Resul t [facility] [address] [address], [facility] [address] [place] [address] * COMPREHENSIVE METABOLIC PANEL (09/08/2023 1:27 PM EDT) GLUCOSE 91 65 - 139 mg/dL [facility] Comment: ?Non-fasting reference interval UREA NITROGEN (BUN) 11 7 - 25 mg/dL [facility] CREATININE (blood) 1.24 0.70 - 1.28 mg/dL [facility] EGFR 63 > OR = 60 mL/min/1. 73m2 [facility] BUN/CREATININE RATIO SEE NOTE: [facility] Comment: ?? Not Reported: BUN and Creatinine are within ?? reference range. ? SODIUM 140 135 - 146 mmol/L [facility] POTASSIUM 4.7 3.5 - 5.3 mmol/L [facility] CHLORIDE 106 98 - 110 mmol/L [facility] CARBON DIOXIDE 29 20 - 32 mmol/L [facility] CALCIUM 9.6 8.6 - 10.3 mg/dL [facility] PROTEIN, TOTAL 7.1 6.1 - 8.1 g/dL [facility] ALBUMIN 4.2 3.6 - 5.1 g/dL [facility] GLOBULIN 2.9 1.9 - 3.7 g/dL (calc) [facility] ALBUMIN/GLOBULI N RATIO 1.4 1.0 - 2.5 (calc) [facility] BILIRUBIN, TOTAL 0.4 0.2 - 1.2 mg/dL [facility] ALKALINE PHOSPHATASE 71 35 - 144 U/L [facility] AST 12 10 - 35 U/L [facility] ALT 10 9 - 46 U/L [facility] Blood Blood / Unknown 09/08/2023 1 :27 PM EDT 09/08/2023 1:28 PM EDT Narrative [facility] - 09/09/2023 3:52 AM EDT FASTING:NO Sowmya Odom PA-C LAB - BLOOD DRAW Edited Resu lt - Final [facility] [address] [address], [facility] [address] [place] [address] * HISTORIC COLONOSCOPY (03/24/2023 3:00 AM EST) 03/24/2023 3:00 AM EST Sowmya Odom PA-C PROCEDURES Final Result * (ABNORMAL) HEPATITIS A,B,C PANEL (05/14/2013 9:18 AM EST) HEPATITIS B SURFACE ANTIBODY NEGATIVE NEGATIVE [facility] HEPATITIS B SURFACE ANTIGEN NEGATIVE NEGATIVE [facility] HEPATITIS C VIRUS ANTIBODY NEGATIVE NEGATIVE [facility] HEPATITIS A ANTIBODY TOTAL POSITIVE(A) NEGATIVE [facility] HEPATITIS B CORE ANTIBODY NEGATIVE NEGATIVE [facility] Blood specimen (specimen) Blood / Unknown 05/14/2013 9:18 AM EST 05/14/2013 9:18 AM EST Narrative [facility] - 05/16/2013 8:53 AM EST [facility] [address] [place] [address] PT ID [id number] ORD# [id number] Sowmya Odom PA-C LAB - BLOOD DRAW Edited Performing Organization Address City/[facility]/ZIP Co de Phone Number [facility] [address] [place] [address], from Last 3 Months or Most Recently Relevant to Health Maintenance Insurance [facility] Member Subscriber Plan / Payer (Ef fective 2018-Present) Name:Sandy Spencer Relation to Subscriber:Self Name:Sandy Spencer Payer ID:[id number] Group ID:Not on file Type:Indemnity Address: [place] [address] [place] [address] Care Teams L D Rn Relationship Specialty Start Date End Date Sowmya Odom PA-C [address] [place] [address] PCP - General Internal Medicine 05/10/13
== END 2024-08-03 10:30 | disposition home or self-care (01) ==
LOC: HO.HGS 09:54
PROVIDERS: PCP Physician Assistant; Visit Provider Surgery
DX: R10.2 Pelvic and perineal pain (principal)
CPT/HCPCS: 99203

== ENCOUNTER → 2024-08-03 10:48 | Outpatient (BNV) | payer OTHER, SELFPAY | PROVIDERS: Absent Provider Anesthesiology; PCP Physician Assistant; Visit Provider Radiology Diagnostic Radiology | DX: M51.360 Other intervertebral disc degeneration, lumbar region with discogenic back pain only (principal) | CPT/HCPCS: 72114 ==

== ENCOUNTER 2024-09-08 14:00 | Outpatient (REF) | payer OTHER, SELFPAY ==
--- NOTE | ~2024-09-08 | CT_ITS ---
EXAMINATION: CT ABDOMEN PELVIS WITH IV CONTRAST HISTORY: R10.2 - Pelvic and perineal pain COMPARISON: There are no prior studies for available comparison. TECHNIQUE: CT scan of the abdomen and pelvis was performed following administration of 85 mL Omnipaque 350 using standard departmental protocol. Coronal and sagittal reformatted images were generated and reviewed. Oral contrast material was not administered at the request of the referring physician. This CT exam was performed with one or more of the following dose reduction techniques: automated exposure control, adjustment of the mA and/or kV according to patient size, use of iterative reconstruction technique. DLP: 735 mGy-cm FINDINGS: LOWER CHEST: The visualized lung bases are clear. There is no pleural effusion. CARDIOVASCULATURE: The heart is normal in size. There is no pericardial effusion. LIVER: The liver is normal in size and contour. No liver mass is identified. The hepatic and portal veins are patent. GALLBLADDER / BILE DUCTS: The gallbladder is unremarkable. There is no intra or extrahepatic biliary ductal dilatation. SPLEEN: The spleen is normal in size. No focal splenic lesion is identified. PANCREAS: There are punctate calcifications in the pancreas suggestive of chronic pancreatitis. No acute inflammatory changes are seen. The pancreatic duct is normal in caliber. ADRENAL GLANDS: Within normal limits. KIDNEYS/RETROPERITONEUM: No renal calculi are identified. There is no hydronephrosis. No renal masses are identified. LYMPH NODES: No abdominal or pelvic lymphadenopathy. VASCULATURE: The abdominal aorta is normal in caliber. MESENTERY/PERITONEUM: No free fluid. No masses. There is no free intraperitoneal gas. STOMACH: The stomach is distended with debris. SMALL BOWEL: The small bowel is normal in caliber. COLON: The colon is unremarkable. APPENDIX: Normal. URINARY BLADDER/PELVIC ORGANS: The urinary bladder is unremarkable. The prostate is normal in size. BONES / SOFT TISSUES: There is mild degenerative disc disease of the spine. CT/CT abdomen pelvis w IV con IMPRESSION: Pancreatic parenchymal calcifications, suggestive of chronic pancreatitis. Otherwise unremarkable contrast-enhanced CT of the abdomen and pelvis. Electronically signed by: Yeyo Salgado MD 09/08/2024 03:09 PM EDT
[2024-09-08 14:27] LABS: Creatinine POC 1.3 mg/dL (0.5-1.4); GFR POC 60
[2024-09-08] MEDS: iohexoL 350 MG/ML 100 ML INFUS..BTL IV (14:49)
--- OUTSIDE RECORDS SUMMARY | 2024-09-08 16:54 | XMS_ITS | Clinical Summary ---
Author Organization [facility] Address [address] [place] [address] Care Team Providers Care Fios Line Installer Name Role Phone Sowmya Odom PA-C Primary Care Provider [phone] Source Comments PLEASE NOTE, if this patient [...] by miscellaneous route daily. Personal care wipes, [id number]/month, dx bowel and bladder care 200 Each 12/25/19 24 Active MISCELLANEOUS MEDICAL SUPPLY MISCIndications:Mi xed incontinence by miscellaneous route daily. Adult pull ups disp 120/month, dx mixed incontinence 120 Each 12/25/19 24 Active MISCELLANEOUS MEDICAL SUPPLY MISCIndications:Mi xed incontinence by miscellaneous route daily. Large gloves, [id number]/month, dx mixed incontinence 100 Each 12/25/19 24 Active ketoconazole (NIZORAL) 2 % shampooIndications :Tinea versicolor Apply topically once daily as needed for itching 120 mL 6 01/28/20 24 Active MISCELLANEOUS MEDICAL SUPPLY MISCIndications:Ch ronic low back pain without sciatica, unspecified back pain laterality by miscellaneous route daily. Juve cruz, disp 60/month, dx osteoarthritis, [facility] fax [phone]. 60 Each 01/28/20 24 Active Active Problems Problem Noted Date Diagnosed Date First degree AV block on EKG 01/202304/03/2023 Essential hypertension, benign 07/19/2019 Non morbid obesity 05/10/2018 Pulmonary nodule, left on CX R 03/02/2017 [facility] 03/17/2017 Rotator cuff tear, right, [...] on 05 Aug 2013 12:14 Encounter info: [id number], [facility], [facility], 08/05/2013 - * Final Report * Reason For Exam LBP with right lateral LE pain/Numbness;LBP with right lateral LE pain/Numbness RESULT: MRI Lumbar Spine W/O Contrast [facility] VISIT NUMBER :[id number] PATIENT NAME : Sandy Spencer DATE OF : 1955 DATE OF EXAM : 08/05/2013 REFERRING PHYSICIAN : [facility] [address] [place] [address] RESULTS PREFERENCE : Reports via Fax to [phone]. Images on CD via Mail. Secure access to reports and images at [email or web address] for medical csr. EXAM : MR - LUMBAR SPINE (C-) CPT 70237 - Final Report HISTORY: Lower back pain [...] on 16 November 2013 22:19 Encounter info: [id number], [facility], [facility], 11/16/2013 - 11/16/2013 Contributor system: NUANCE * Final Report * EMG Nerve Conduction Study (Verified) [facility] ELECTROMYOGRAPHY REPORT Referring Provider: Yeyo Pascal M.D. EMG Physician: Yaron Valdez M.D. bilingual medical receptionist: SHREYA Date of Study: 11/16/2013 Limb Temperature: Warmed with hot packs to greater than 34 C Height: 5' 8 Weight: 190 lbs Order ID: [id number] IMPRESSION: The study is normal. There is no evidence of a right midlumbar to upper sacral radiculopathy, plexopathy or distal right lower extremity polyneuropathy. 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 He has right lower back [...] of comparison to the right side. A Welsh bridge instructor was present during testing. His granddaughter, Evette, [...] Transcribed: 11/16/2013 18:53:00 Transcribed by: EMERALD DocID: [id number] PRELIMINARY REPORT UNLESS MANUALLY/ELECTRONICALLY SIGNED CC:Obed Chavira M.D. [address] [place], [address] Yeyo Pascal M.D. [address], [address] [place], [address] S/P colonoscopy 200604/26/2014 Overview (04/26/2014): Result type: Special Procedure/Gastro Note Result date: 09 July 2006 1:45 Result status: Auth (Verified) Result title: NOTE Encounter info: [id number], [facility], [facility], 07/09/2006 - 07/09/2006 Contributor system: Probki Iz okna * Final Report * NOTE Colonoscopy Report Endoscopist(s): Ronaldo Lam MD Date: June Ref. Phys.: GALINA MURRIETA MD; Juan Luis Osman MD Patient: SANDY SPENCER Assisting Nurse(s)/ Other Personnel: Cat Concepcion RN (RN) RICHARD Doan (plastic parts fabricator trimmer) Instrument: [id number]-[id number] ([id number]) Date: 1955 (51 years) Account: [id number] History: Please see office H&P Medications: Meperidine [...] on 07/09/2006 12:58:26 PM Patient: SANDY SPENCER ([id number] ) Social History Tobacco Use Types Packs/Day [...] 58 09/08/2023 1:07 PM EDT Temperature 36.7 C (98 F) 09/08/2023 1:07 PM EDT Respiratory Rate 16 [...] Fecal DNA 1998 Flexible Sigmoidoscopy 1998 Imm-Pneumococcal 50+ (1 of 1 - PCV) 05/22/2003 Imm-Zoster, Recombinant (1 of 2) 05/22/2003 FIT/gFOBT 05/10/2014 05/10/2013 (Declined) Falls Prevention 2018 Lipid Screening 09/07/2024 09/08/2023, 05/14, 08/29/2021, Additional history exists Imm-Influenza (Season Ended) 11/14/202401/2015 (Declined), 05/10/2013 (Declined) Tobacco Screening 04/27/2025 04/27/2024, , 05/23/2022 Imm-DTaP/Tdap/Td (2 - Td or Tdap) 02/16/2026 016 Colonoscopy 03/24/2033 03/24/2023 Colorectal Cancer Screening 03/24/2033 Hepatitis C Screening Completed 05/14/2013 Alcohol and Drug Screen Completed 04/27/19 25, 04/03/2023, 01/20/2023, Additional history exists Depression Annual Screen Completed 025, 04/26/2014 (Declined) [id number] Discontinued Procedures Procedure Name Priority Date/Time Associated Diagnosis Comments REFERRAL SCANNED DOCUMENT 08/03/2024 3:00 AM EDT LAB SCANNED DOCUMENT 08/03/2024 3:00 AM EDT IMAGING SCANNED DOCUMENT 08/03/2024 3:00 AM EDT IMAGING SCANNED DOCUMENT 08/03/2024 3:00 AM EDT CARD SCANNED DOCUMENT 06/14/2024 3:00 AM EDT LIPID PANEL Routine 09/08/2023 1:27 PM EDT Suprapubic pain Bladder wall thickening Chronic low back pain without sciatica, unspecified back pain laterality Non morbid obesity HISTORIC COLONOSCOPY 03/24/2023 3:00 AM EST HEPATITIS A,B,C PANEL Routine 05/14/2013 9:18 AM EST Dizziness from Last 3 Months or Most Recently Relevant to Health Maintenance Results * REFERRAL SCANNED DOCUMENT (08/03/2024 3:00 AM EDT) 08/03/2024 3:00 AM EDT us Lyn Donaldson SCAN REFERRAL Final Result * LAB SCANNED DOCUMENT (08/03/2024 3:00 AM EDT) 08/03/2024 3:00 AM EDT Sowmya Lukin PA-C SCAN LAB Final Result * IMAGING SCANNED DOCUMENT (08/03/2024 3:00 AM EDT) Only the most recent of2 resultswithin the time period is included. 08/03/2024 3:00 AM EDT us Deng Lukin PA-C SCAN IMAGING Final Result * CARD SCANNED DOCUMENT (06/14/2024 3:00 AM EDT) 06/14/2024 3:00 AM EDT us Coleya Lukin PA-C SCAN ECGS Final Result * (ABNORMAL) LIPID PANEL (09/08/2023 1:27 PM EDT) [facility] Signature CHOLESTEROL, TOTAL 228(H) <200 mg/dL [facility] HDL CHOLESTEROL 41 > OR = 40 mg/dL [facility] TRIGLYCERIDES 182(H) <150 mg/dL [facility] LDL-CHOLESTEROL 155(H) 99 mg/dL (calc) [facility] Comment: Reference range: <100 Desirable range <100 mg/dL for primary prevention; <70 mg/dL for patients with CHD or diabetic patients with > or = 2 CHD risk factors. LDL-C is now calculated using the Luisa calculation, which is a validated novel method providing better accuracy than the Friedewald equation in the estimation of LDL-C. Eliezer EDOUARD et al. JACOB. 2013;310(19): 6823-0327 (http://education.QuizFortune.BuildFax/faq/ZAR359) CHOL/HDLC RATIO 5.6(H) <5.0 (calc) [facility] NON-HDL CHOLESTEROL 187(H) <130 mg/dL (calc) [facility] Comment: For patients with diabetes plus 1 major ASCVD risk factor, treating to a non-HDL-C goal of <100 mg/dL (LDL-C of <70 mg/dL) is considered a therapeutic option. Blood Blood / Unknown 09/08/2023 1 :27 PM EDT 09/08/2023 1:28 PM EDT Narrative [facility] - 09/09/2023 3:52 AM EDT FASTING:NO Sowmya Odom PA-C LAB - BLOOD DRAW Final Resul t [facility] [address] [place] [address], [facility] [address] [id number] * HISTORIC COLONOSCOPY (03/24/2023 3:00 AM EST) 03/24/2023 3:00 AM EST Sowmya Odom PA-C PROCEDURES Final Result * (ABNORMAL) HEPATITIS A,B,C PANEL (05/14/2013 9:18 AM EST) HEPATITIS B SURFACE ANTIBODY NEGATIVE NEGATIVE [facility] HE[facility] B SURFACE ANTIGEN NEGATIVE NEGATIVE [facility] HE[facility] C VIRUS ANTIBODY NEGATIVE NEGATIVE [facility] HEPATITIS A ANTIBODY TOTAL POSITIVE(A) NEGATIVE [facility] HEPATITIS B CORE ANTIBODY NEGATIVE NEGATIVE [facility] Blood specimen (specimen) Blood / Unknown 05/14/2013 9:18 AM EST 05/14/2013 9:18 AM EST Narrative [facility] - 05/16/2013 8:53 AM EST [facility] [address] [place] [id number] [place] ID [id number] ORD# [id number] Sowmya Odom PA-C LAB - BLOOD DRAW Edited [facility] [address] [place] [address], from Last 3 Months or Most Recently Relevant to Health Maintenance Insurance [facility] Care Teams Fios Line Installer Relationship Specialty Start Date End Date Sowmya Odom PA-C [address] [place] [phone] PCP - General Internal Medicine 05/10/13
== END 2024-09-08 14:01 | disposition home or self-care (01) ==
LOC: HO.CT 14:00
PROVIDERS: PCP Physician Assistant; Visit Provider Surgery
DX: R10.2 Pelvic and perineal pain (principal)
CPT/HCPCS: 74177; 82565; Q9967

== ENCOUNTER → 2024-09-08 14:02 | Outpatient (BNV) | payer OTHER, SELFPAY | PROVIDERS: PCP Physician Assistant; Visit Provider Radiology Diagnostic Radiology | DX: K86.1 Other chronic pancreatitis (principal) | CPT/HCPCS: 74177 ==

== ENCOUNTER 2024-10-05 09:31 | Outpatient (AMB) | payer OTHER, SELFPAY ==
--- NOTE | 2024-10-05 09:32 | MHC.OFFVIS ---
Vital Signs 10/05/24 09:38 Height 5 ft 6 in Weight 216 lb BMI 34.9 BP 128/87 Blood Pressure Location Rt brachial Position Sitting Pulse 61 Intake Visit Reasons: CT results Intake Note: Patient here to discuss Abdomen pelvis CT dated 09-08-2024 results. Mobile Heavy Equipment Mechanic Required: No Accompanied by: daughter Ingrid Allergies tramadol Adverse Reaction (Severe, Verified 10/05/24 09:38) Itching Medication List - Last Reconciled 10/05/24 by Vasiliy Donaldson MD ibuprofen 200 mg PO Q6H PRN losartan 25 mg PO DAILY HPI HPI CT results: Details: He is here for follow-up for his chronic suprapubic pain. He has had this for over 2 years now I did not appreciate any hernia on physical exam and I saw him so I had sent him for an CAT scan of the abdomen and pelvis and is here to discuss this. He denies any GI complaints. He does not feel any lump on his abdominal wall. He does not have any changes with regards to his health overall. [facility] Medical History Herniated cervical disc Rotator cuff arthropathy HTN (hypertension) Surgical History H/O hemorrhoidectomy Social History Alcohol intake: never Patient Tobacco Use Status: Never used Tobacco Review of Systems Const Denies chills and Denies fever(s) Card Denies chest pain, Denies dyspnea and Denies dyspnea on exertion Resp Denies cough, Denies dyspnea and Denies dyspnea on exertion GI Denies hematochezia and Denies change in bowel habits Denies hematuria and Denies difficulty urinating Musc Denies back pain and Denies limited range of motion Neuro Denies focal weakness and Denies convulsions Psych Denies depression and Denies mood swings Physical Exam Vital Signs: Last Vital Signs Pulse 61 10/05/24 09:38 BP 128/87 10/05/24 09:38 BMI result Body Mass Index 34.9 Const General: comfortable and no acute distress Resp Effort & Inspection: normal respiratory effort Cardio Rate: regular rate GI Other: No palpable hernias, no abdominal distention, no discrete masses on the abdominal wall Palpation (GI): Soft to palpation, not firm, nontender and no guarding Assessment & Plan Assessment & Plan (1) Suprapubic abdominal pain: Code(s): R10.2 - Pelvic and perineal pain Category: Medical Plan: He has had this chronic suprapubic abdominal pain. I had sent him her CAT scan to identify any etiology. I have reviewed his CAT scan images. I do not see any abdominal wall hernias. I do not see any intra-abdominal pathology currently I explained to him and his daughter that there is no identifiable etiology at this time regards to his chronic lower abdominal pain. He already has seen a urologist in the past for this and he is being referred to a another 1 for opinion He denies GI complaints. He is up-to-date with this colonoscopy. I told him and his daughter that at this time, I do not see any surgical issue with regards to his abdominal pain . His pain may be secondary to abdominal wall etiology like muscle injury. I did tell him that he can follow up in the office to be re-evaluated down the line. Coding Level of Care Code Est Pt Level 3 (86639) Diagnoses Suprapubic abdominal pain R10.2
[2024-10-05 09:38] VITALS: BP 128/87; PULSE 61; BMI 34.9
--- OUTSIDE RECORDS SUMMARY | 2024-10-05 10:01 | XMS_ITS | Clinical Summary ---
Author Organization [facility] Address [address] [place] [address] Care Team Providers Care Snow Fence Erector Name Role Phone Sowmya Odom PA-C Primary Care Provider [phone] Source Comments PLEASE NOTE, if this patient [...] by miscellaneous route daily. Personal care wipes, ilkf933/month, dx bowel and bladder care 200 Each 12/25/19 24 Active MISCELLANEOUS MEDICAL SUPPLY MISCIndications:Mi xed incontinence by miscellaneous route daily. Adult pull ups disp 120/month, dx mixed incontinence 120 Each 12/25/19 24 Active MISCELLANEOUS MEDICAL SUPPLY MISCIndications:Mi xed incontinence by miscellaneous route daily. Large gloves, [id number]/month, dx mixed incontinence 100 Each 12/25/19 24 Active ketoconazole (NIZORAL) 2 % shampooIndications :Tinea versicolor Apply topically once daily as needed for itching 120 mL 6 01/28/20 24 Active MISCELLANEOUS MEDICAL SUPPLY MISCIndications:Ch ronic low back pain without sciatica, unspecified back pain laterality by miscellaneous route daily. Juve cruz, disp 60/month, dx osteoarthritis, Home Care Delivery fax [phone]. 60 Each 01/28/20 24 Active Active Problems Problem Noted Date Diagnosed Date First degree AV block on EKG 01/202304/03/2023 Essential hypertension, benign 07/19/2019 Non morbid obesity 05/10/2018 Pulmonary nodule, left on CX R 03/02/2017 [facility] 03/17/2017 Rotator cuff tear, right, [...] on 05 Aug 2013 12:14 Encounter info: [id number], [facility], [facility], 08/05/2013 - * Final Report * Reason For Exam LBP with right lateral LE pain/Numbness;LBP with right lateral LE pain/Numbness RESULT: MRI Lumbar Spine W/O Contrast [facility] VISIT NUMBER :[id number] PATIENT NAME : Sandy Spencer DATE OF : 1955 DATE OF EXAM : 08/05/2013 REFERRING PHYSICIAN : [facility] [address] [place] [address] RESULTS PREFERENCE : Reports via Fax to [phone]. Images on CD via Mail. Secure access to reports and images at [employer] for medical technologist chief. EXAM : MR - LUMBAR SPINE (C-) CPT 11300 - Final Report HISTORY: Lower back pain [...] on 16 November 2013 22:19 Encounter info: [id number], [facility], [facility], 11/16/2013 - 11/16/2013 Contributor system: NUANCE * Final Report * EMG Nerve Conduction Study (Verified) [facility] ELECTROMYOGRAPHY REPORT Referring Provider: Yeyo Pascal M.D. EMG Physician: Yaron Valdez M.D. cement rubber: SHREYA Date of Study: 11/16/2013 Limb Temperature: Warmed with hot packs to greater than 34 C Height: 5' 8 Weight: 190 lbs Order ID: [id number] IMPRESSION: The study is normal. There is no evidence of a right midlumbar to upper sacral radiculopathy, plexopathy or distal right lower extremity polyneuropathy. 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 He has right lower back [...] of comparison to the right side. A [place]an general ledger bookkeeper was present during testing. His granddaughter, Evette, [...] Dictated by: Yaron Valdez M.D. Signing Clinician: Yarno Valdez M.D. Dictated: 11/16/2013 15:08:23 Transcribed: 11/16/2013 18:53:00 Transcribed by: EMERALD DocID: [id number] PRELIMINARY REPORT UNLESS MANUALLY/ELECTRONICALLY SIGNED CC:Obed Chavira M.D. [address] [place], [address] Yeyo Pascal M.D. [address], [address] [place], [address] S/P colonoscopy 200604/26/2014 Overview (04/26/2014): Result type: Special Procedure/Gastro Note Result date: 09 July 2006 1:45 Result status: Auth (Verified) Result title: NOTE Encounter info: [id number], [facility], [facility], 07/09/2006 - 07/09/2006 Contributor system: Yatango * Final Report * NOTE Colonoscopy Report Endoscopist(s): Ronaldo Lam MD Date: June Ref. Phys.: GALINA MURRIETA MD; Juan Luis Osman MD Patient: SANDY SPENCER Assisting Nurse(s)/ Other Personnel: Cat Concepcion RN (RN) RICHARD Doan (rubber tubing backer) Instrument: [id number] ([id number]) Date: 1955 (51 years) Account: [id number] History: Please see office H&P Medications: Meperidine [...] on 07/09/2006 12:58:26 PM Patient: SANDY SPENCER ([id number] ) Social History Tobacco Use Types Packs/Day Years Used Date Smoking Tobacco: Never Smokeless Tobacco: Never Tobacco Cessation:Counseling Given: Not Answered Alcohol Use Standard Drinks/Week Comments No 0 (1 standard drink = 0.6 oz pur e alcohol) Social Connections Answer Date Recorded How often do you feel lonely or isolated from th ose around you? 1 04/27/2024 Financial Resource Strain Answer Date R ecorded Hard to pay for: Food 1 04/27/2024 Stress Answer Date Recorded Do you feel these kinds of stress these days? 1 04/27/2024 Physical Activity Answer Date Recorded Physical Activity 0 11/06/2018 Food Insecurity Answer Date Recorded Hard to pay for: Food 1 04/27/2024 Transportation Needs Answer Date Record ed Hard to pay for: Transportation 1 04/27/2024 Housing Stability Answer Date Recorded Hard to pay for: Rent/Mortgage payment 1 04/27/2024 Safety and Environment Answer Date Spencer rded Safety 0 01/21/2023 Utilities Answer Date Recorded Hard to pay for: Utilities 1 04/27 Employment Answer Date Recorded Employment 0 11/06/2018 [...] 09/08/2023, 05/14, 08/29/2021, Additional history exists Imm-Influenza (#1) 2024 04/26/2014 (D eclined), 05/10/2013 (Declined) Tobacco Screening 04/27/2025 04/27/2024, , 05/23/2022 Imm-DTaP/Tdap/Td (2 - Td or Tdap) 02/16/2026 016 Colonoscopy 03/24/2033 03/24/2023 Colorectal Cancer Screening 03/24/2033 Hepatitis C Screening Completed 05/14/2013 Alcohol and Drug Screen Completed 04/27/19 25, 04/03/2023, 01/20/2023, Additional history exists Depression Annual Screen Completed 025, 04/26/2014 (Declined) [id number] Discontinued Procedures Procedure Name Priority Date/Time Associated Diagnosis Comments LAB SCANNED DOCUMENT 09/08/2024 3:00 AM EDT IMAGING SCANNED DOCUMENT 09/08/2024 3:00 AM EDT REFERRAL SCANNED DOCUMENT 08/03/2024 3:00 AM EDT LAB SCANNED DOCUMENT 08/03/2024 3:00 AM EDT IMAGING SCANNED DOCUMENT 08/03/2024 3:00 AM EDT IMAGING SCANNED DOCUMENT 08/03/2024 3:00 AM EDT LIPID PANEL Routine 09/08/2023 1:27 PM EDT Suprapubic pain Bladder wall thickening Chronic low back pain without sciatica, unspecified back pain laterality Non morbid obesity HISTORIC COLONOSCOPY 03/24/2023 3:00 AM EST HEPATITIS A,B,C PANEL Routine 05/14/2013 9:18 AM EST Dizziness from Last 3 Months or Most Recently Relevant to Health Maintenance Results * LAB SCANNED DOCUMENT (09/08/2024 3:00 AM EDT) Only the most recent of2 resultswithin the time period is included. 09/08/2024 3:00 AM EDT Sowmya Rodriguezkin PA-C SCAN LAB Final Result * IMAGING SCANNED DOCUMENT (09/08/2024 3:00 AM EDT) Only the most recent of3 resultswithin the time period is included. 09/08/2024 3:00 AM EDT Sowmya Rodriguezkin PA-C SCAN IMAGING Final Result * REFERRAL SCANNED DOCUMENT (08/03/2024 3:00 AM EDT) 08/03/2024 3:00 AM EDT Lyn Donaldson SCAN REFERRAL Final Result * (ABNORMAL) LIPID PANEL (09/08/2023 1:27 PM EDT) CHOLESTEROL, TOTAL 228(H) <200 mg/dL [facility] HDL CHOLESTEROL 41 > OR = 40 mg/dL [facility] TRIGLYCERIDES 182(H) <150 mg/dL [facility] LDL-CHOLESTEROL 155(H) 99 mg/dL (calc) [facility] Comment: Reference range: <100 Desirable range <100 mg/dL for primary prevention; <70 mg/dL for patients with CHD or diabetic patients with > or = 2 CHD risk factors. LDL-C is now calculated using the Luisa calculation, which is a validated novel method providing better accuracy than the Friedewald equation in the estimation of LDL-C. Eliezer EDOUARD et al. JACOB. 2013;310(19): 1839-3824 (http://education.[employer].Hot Potato/faq/ZJF256) CHOL/HDLC RATIO 5.6(H) <5.0 (calc) [employer] NON-HDL CHOLESTEROL 187(H) <130 mg/dL (calc) [facility] Comment: For patients with diabetes plus 1 major ASCVD risk factor, treating to a non-HDL-C goal of <100 mg/dL (LDL-C of <70 mg/dL) is considered a therapeutic option. Blood Blood / Unknown 09/08/2023 1 :27 PM EDT 09/08/2023 1:28 PM EDT Narrative [facility] - 09/09/2023 3:52 AM EDT FASTING:NO Sowmya Odom PA-C LAB - BLOOD DRAW Final Resul t Performing Organization Address City/State/[facility] Co de Phone Number [facility] [address] [place] [id number], [facility] [address] [phone] * HISTORIC COLONOSCOPY (03/24/2023 3:00 AM EST) 03/24/2023 3:00 AM EST Sowmya Odom PA-C PROCEDURES Final Result * (ABNORMAL) HEPATITIS A,B,C PANEL (05/14/2013 9:18 AM EST) HEPATITIS B SURFACE ANTIBODY NEGATIVE NEGATIVE [facility] SURFACE ANTIGEN NEGATIVE NEGATIVE [facility] C VIRUS ANTIBODY NEGATIVE NEGATIVE [facility] HEPAT[facility]IS A ANTIBODY TOTAL POSITIVE(A) NEGATIVE [facility] HEPATITIS B CORE ANTIBODY NEGATIVE NEGATIVE [facility] Blood specimen (specimen) Blood / Unknown 05/14/2013 9:18 AM EST 05/14/2013 9:18 AM EST Narrative [facility] - 05/16/2013 8:53 AM EST [employer] [address] [place] [id number] [place] ID [id number] ORD# [id number] Sowmya Odom PA-C LAB - BLOOD DRAW [facility] [address] [place] [address], from Last 3 Months or Most Recently Relevant to Health Maintenance Insurance [facility] [place] [id number] Care Teams Snow Fence Erector Relationship Specialty Start Date End Date Sowmya Odom PA-C [address] [place] [id number] PCP - General Internal Medicine 05/10/13
== END 2024-10-05 09:48 | disposition home or self-care (01) ==
LOC: HO.HGS 09:31
PROVIDERS: PCP Physician Assistant; Visit Provider Surgery
DX: R10.2 Pelvic and perineal pain (principal)
CPT/HCPCS: 99213

== ENCOUNTER → 2024-10-05 09:31 | Outpatient (BNVA) | payer OTHER, SELFPAY | PROVIDERS: PCP Physician Assistant; Visit Provider Surgery | DX: R10.2 Pelvic and perineal pain (principal) | CPT/HCPCS: 99212 ==

== ENCOUNTER 2024-10-31 15:36 | Outpatient (AMB) | payer OTHER, SELFPAY ==
--- NOTE | 2024-10-31 15:38 | A.OFFVIS_ITS ---
Intake Visit Reasons: Pelvic and perineal pain, microscopic hematuria Intake Note: PT PRESENTS FOR: NEW PT PELVIC AND PERINEAL PAIN UROLOGY MEDICATIONS: NONE BLOOD THINNERS: NONE Bankruptcy Processor Required: Yes Bankruptcy Processor Services: Bankruptcy Processor Present Bankruptcy Processor Name: DAUGHTER/GUYANESE Accompanied by: Daughter Allergies tramadol Adverse Reaction (Severe, Verified 10/31/24 15:52) Itching Medication List - Last Reconciled 10/31/24 by ANGELICA Vail-TALAT ibuprofen 200 mg PO Q6H PRN ketoconazole 2% topical DAILY PRN lidocaine 4% (Lidocaine Pain Relief) 1 patch topical DAILY PRN losartan 25 mg PO DAILY HPI Comments Details: Wesley is a pleasant 69-year-old Central African-speaking male patient of Dr. Odom was accompanied by his daughter at today's office visit in his requesting t ranslation to be provided by his daughter. He has a past medical history of herniated cervical disc, headaches, rotator cuff, and hypertension. He presents to the office today as a new patient for ongoing lower urinary tract symptoms he has been experiencing. In discussion with the patient and his daughter today who provides much of today's health history. She reports noting over the last 2-2.5 years patient has been having ongoing issues with suprapubic discomfort that has since increase to lower abdominal discomfort. He reports some time after a fall on his back he started experiencing these symptoms. Recent CT of the abdomen and pelvis with IV contrast was reviewed 09/07 no renal calculi are identified. There is no hydronephrosis or renal masses identified. No abdominal or pelvic lymphadenopathy. The urinary bladder is unremarkable. The prostate is normal size. He reports pain is more notable when sitting and feels it is somewhat relieved when standing. He reports initially pain started in the suprapubic area however feels at times it radiates to his umbilicus. He reports having previously followed up with [facility] at which time he was noted to have microscopic hematuria and had further workup. He reports having had an office cystoscopy that was noted to be within normal limits however has recently followed up with pain management here at [facility] and was requesting a 2nd opinion. In office urinalysis results reviewed with the patient today. No microscopic hematuria noted. In review of patient's chart it appears PSA 08/07 0.6. JYOTHI was performed prostate was noted to be enlarged and boggy otherwise no nodules or masses palpated. We did discussed potential causes of suprapubic pain patient is experiencing. We discussed potential for prostatitis. We discussed acute versus chronic prostatitis. He denies any bothersome urinary issues. He denies urinary urgency, urinary frequency, incontinence, nocturia, hematuria, dysuria, foul smelling urine, changes to urinary stream, flank pain, fever, and or chills. He is happy with his current voiding parameters. All questions were answered. He otherwise offers no other issues or concerns at this time. [facility] Medical History Herniated cervical disc Rotator cuff arthropathy HTN (hypertension) Surgical History H/O hemorrhoidectomy Social History Alcohol intake: never Patient Tobacco Use Status: Never used Tobacco Review of Systems Const All systems reviewed & are unremarkable except as noted in HPI and below Physical Exam Const General: cooperative, healthy appearing, comfortable, no acute distress, well developed, alert and awake Nutritional Appearance: overweight Orientation/consciousness: patient oriented x3 Limitations: language barrier HEENT Head: Yes normal to inspection, Yes normocephalic and Yes atraumatic Ears: hearing grossly normal bilaterally Eyes General: appearance normal, both eyes and all related structures Neck Neck: Yes normal visual inspection and Yes trachea midline Chest Chest palpation & inspection: normal inspection of the chest Resp Effort & Inspection: normal respiratory effort and able to speak in complete sentences Cardio Rate: regular rate GI Inspection: Yes normal to inspection General: Yes no CVA tenderness Back/Spine/Pelvis Back: no CVA tenderness Skin General skin exam: no rashes or lesions noted Neuro General: patient oriented x3 Extrem General: Yes normal to inspection Psych Appearance: grossly normal and well kempt Mental Status: mental status grossly normal Speech and movement: Normal speech and movement present and Clear speech present Affect: normal affect Attitude: cooperative Thought process: Normal thought process present Thought content: Normal thought content present Insight: Fair insight present (Psych) Judgement: Fair judgement present (Psych) Results AMB Urinalysis, Automated UA Leukoctes 0 Ajit/uL Last Edit by BETO Lake on 10/31/24 15:50 UA Nitrite Negative Last Edit by BETO Lake on 10/31/24 15:50 UA Urobilinogen 3.5 mg/dL Last Edit by Celena Chapa [facility] on 10/31/24 15:5 0 UA Protein 15 mg/dL Last Edit by Celena Chapa [facility] on 10/31/24 15:50 UA pH 6.0 Last Edit by Celena Chapa [facility] on 10/31/24 15:50 UA Blood 0 Feliberto/uL Last Edit by Celena Chapa [facility] on 10/31/24 15:50 UA Specific [place] 1.020 Last Edit by Celena Chapa [facility] on 10/31/24 15: 50 UA Ketone Negative Last Edit by Celena Chapa [facility] on 10/31/24 15:50 UA Bilirubin 0 mg/dL Last Edit by Celena Chapa [facility] on 10/31/24 15:50 UA Glucose 0 mg/dL Last Edit by Celena Chapa [facility] on 10/31/24 15:50 Results Reviewed Results Reviewed: Laboratory Last Values Urine pH (Auto) 6.0 10/31/24 15:49 Specific [place] (Auto) 1.020 10/31/24 15:49 Urine Protein (Auto) 15 mg/dL 10/31/24 15:49 Glucose (UA)(Auto) 0 mg/dL 10/31/24 15:49 Urine Ketones (Auto) Negative 10/31/24 15:49 Urine Blood (Auto) 0 Feliberto/uL 10/31/24 15:49 Urine Nitrite (Auto) Negative 10/31/24 15:49 Urine Bilirubin (Auto) 0 mg/dL 10/31/24 15:49 Urine Urobilinogen (Auto) 3.5 mg/dL 10/31/24 15:49 Leukocyte Esterase (Auto) 0 Ajit/uL 10/31/24 15:49 Date of Service: 09/08/24 Procedure(s): CT abdomen pelvis w IV con FINDINGS: LOWER CHEST: The visualized lung bases are clear. There is no pleural effusion. CARDIOVASCULATURE: The heart is normal in size. There is no pericardial effusion. LIVER: The liver is normal in size and contour. No liver mass is identified. The hepatic and portal veins are patent. GALLBLADDER / BILE DUCTS: The gallbladder is unremarkable. There is no intra or extrahepatic biliary ductal dilatation. SPLEEN: The spleen is normal in size. No focal splenic lesion is identified. PANCREAS: There are punctate calcifications in the pancreas suggestive of chronic pancreatitis. No acute inflammatory changes are seen. The pancreatic duct is normal in caliber. ADRENAL GLANDS: Within normal limits. KIDNEYS/RETROPERITONEUM: No renal calculi are identified. There is no hydronephrosis. No renal masses are identified. LYMPH NODES: No abdominal or pelvic lymphadenopathy. VASCULATURE: The abdominal aorta is normal in caliber. MESENTERY/PERITONEUM: No free fluid. No masses. There is no free intraperitoneal gas. STOMACH: The stomach is distended with debris. SMALL BOWEL: The small bowel is normal in caliber. COLON: The colon is unremarkable. APPENDIX: Normal. URINARY BLADDER/PELVIC ORGANS: The urinary bladder is unremarkable. The prostate is normal in size. BONES / SOFT TISSUES: There is mild degenerative disc disease of the spine. IMPRESSION: Pancreatic parenchymal calcifications, suggestive of chronic pancreatitis. Otherwise unremarkable contrast-enhanced CT of the abdomen and pelvis. Assessment & Plan Assessment & Plan (1) Suprapubic abdominal pain: Code(s): R10.2 - Pelvic and perineal pain Category: Medical (2) Prostatitis: Code(s): N41.9 - Inflammatory disease of prostate, unspecified Category: Medical Plan In office urinalysis results reviewed with the patient today; as noted above. Most recent imaging results reviewed with the patient today; as noted above. Recent PSA results reviewed with the patient today; as noted above. JYOTHI was performed We discussed potential causes of lower urinary tract symptoms patient is experiencing as well as further treatment options and risks and benefits of these treatment options. Start Flomax as discussed and prescribed. Start Bactrim as discussed and prescribed. We discussed prostatitis (acute versus chronic) We did discussed potential near future in office cystoscopy and or urodynamics for further assessment evaluation. Follow-up in 1-2 months with [facility]; or sooner with any issues, concerns, and or questions. Orders: Orders AMB Urinalysis Automated Today Z13.9 - Encounter for screening, unspecified Medications: New tamsulosin 0.4 mg PO BEDTIME 30 caps 1RF 30 days N40.1 - Benign prostatic hyp erplasia with lower urinary tract symptoms, R35.1 - Nocturia sulfamethoxazole-trimethoprim 800-160 mg (Bactrim DS) 1 tab PO BID 28 tabs 0RF 14 days N39.0 - Urinary tract infection, site not specified Patient Instructions: The patient had an opportunity to ask questions regarding the treatment plan. All questions were answered. Physical exam, labs, and imaging were discussed and reviewed in detail. As well as risks, benefits, and discussion of treatment choices. No major barriers to understanding were identified. The patient expressed understanding and agreement with the above treatment plan. The patient was made aware they should contact our office by phone for worsening of their current condition, the appearance of new symptoms, or with any questions or concerns. Compliance is encouraged with any medications and follow up testing that is ordered. It is a privilege to be allowed the opportunity to participate in? your urological care.? Again, if you have any questions or concerns If you have any questions or concerns please do not hesitate to contact me. The office is [phone]. This note is constructed using voice recognition software. While every effort has been made to ensure accuracy supplier manager errors may have been included. Yours sincerely, JONATHAN Vail Coding Level of Care Code New Pt Level 4 (36102) Diagnoses Suprapubic abdominal pain R10.2 Prostatitis N41.9
--- OUTSIDE RECORDS SUMMARY | 2024-10-31 16:02 | XMS_ITS | Clinical Summary ---
Author Organization [facility] Address [address] [place] [address] Care Team Providers Care Land Acquisition Manager Name Role Phone Sowmya Odom PA-C Primary Care Provider [phone] Source Comments PLEASE NOTE, if this patient [...] by miscellaneous route daily. Personal care wipes, jsdg457/month, dx bowel and bladder care 200 Each 12/25/19 24 Active MISCELLANEOUS MEDICAL SUPPLY MISCIndications:Mi xed incontinence by miscellaneous route daily. Adult pull ups disp 120/month, dx mixed incontinence 120 Each 12/25/19 24 Active MISCELLANEOUS MEDICAL SUPPLY MISCIndications:Mi xed incontinence by miscellaneous route daily. Large gloves, joei324/month, dx mixed incontinence 100 Each 12/25/19 24 Active ketoconazole (NIZORAL) 2 % shampooIndications :Tinea versicolor Apply topically once daily as needed for itching 120 mL 6 01/28/20 24 Active MISCELLANEOUS MEDICAL SUPPLY MISCIndications:Ch ronic low back pain without sciatica, unspecified back pain laterality by miscellaneous route daily. Juve cruz, disp 60/month, dx osteoarthritis, [facility] fax [phone]. 60 Each 01/28/20 24 Active lidocaine (LIDODERM) 5 % patch Apply 1 patch to the affected area for a maximum of 12 hours, followed by removal for 12 hours.. 30 Patch 4 10/11/19 25 Active Active Problems Problem Noted Date Diagnosed Date First degree AV block on EKG 01/202304/03/2023 Essential hypertension, benign 07/19/2019 Non morbid obesity 05/10/2018 Pulmonary nodule, left on CX R 03/02/2017 [facility] 03/17/2017 Rotator cuff tear, right, [facility] Dr. Higginbotham 03/201504/17/2015 History of Lyme disease 08/02/2014 Low back pain with right radiculopathy,MRI 5/201 4 04/26/2014 Overview (04/26/2014): Result type: MRI Lumbar Spine W/O Contrast Result date: 05 Aug 2013 7:35 Result status: Auth (Verified) Result title: MRI Lumbar Spine W/O Contrast Performed by: Trupti Arauz MD on 05 Aug 2013 12:14 Verified by: Trupti Arauz MD on 05 Aug 2013 12:14 Encounter info: [id number], [facility] - * Final Report * Reason For Exam LBP with right lateral LE pain/Numbness;LBP with right lateral LE pain/Numbness RESULT: MRI Lumbar Spine W/O Contrast [facility] VISIT NUMBER :[id number] PATIENT NAME : Sandy Spencer DATE OF : 1955 DATE OF EXAM : 08/05/2013 REFERRING PHYSICIAN : [facility] [address] [place], [place] [address] RESULTS PREFERENCE : Reports via Fax to [phone]. Images on CD via Mail. Secure access to reports and images at [email or web address] for medical information officer. EXAM : MR - LUMBAR SPINE (C-) CPT 31646 - Final Report HISTORY: Lower back pain [...] Signed Date/Time: 08/05/13 12:14 pm Transcribed By: BUTCH Transcribed Date/Time: 08/05/13 12:14 pm MRI Lumbar [...] on 16 November 2013 22:19 Encounter info: [id number], [facility], One Time OP, 11/16/2013 - 11/16/2013 Contributor system: NUANCE * Final Report * EMG Nerve Conduction Study (Verified) [facility] ELECTROMYOGRAPHY REPORT Referring Provider: Yeyo Pascal M.D. EMG Physician: Yaron Valdez M.D. wave soldering machine operator: AV Date of Study: 11/16/2013 Limb Temperature: Warmed with hot packs to greater than 34 C Height: 5' 8 Weight: 190 lbs Order ID: [id number] IMPRESSION: The study is normal. There is no evidence of a right midlumbar to upper sacral radiculopathy, plexopathy or distal right lower extremity polyneuropathy. 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 He has right lower back pain [...] of comparison to the right side. A Swiss mold polisher was present during testing. His granddaughter, Evette, [...] Transcribed: 11/16/2013 18:53:00 Transcribed by: EMERALD DocID: [id number] PRELIMINARY REPORT UNLESS MANUALLY/ELECTRONICALLY SIGNED CC:Obed Chavira M.D. [facility] [address] [place] [address], [address] Yeyo Pascal M.D. [address], [address] [place], [address] S/P colonoscopy 200604/26/2014 Overview (04/26/2014): Result type: Special Procedure/Gastro Note Result date: 09 July 2006 1:45 Result status: Auth (Verified) Result title: NOTE Encounter info: [id number], [facility], [facility], 07/09/2006 - 07/09/2006 Contributor system: Internet REIT * Final Report * NOTE Colonoscopy Report Endoscopist(s): Ronaldo Lam MD Date: June Ref. Phys.: GALINA MURRIETA MD; Juan Luis Osman MD Patient: SANDY SPENCER Assisting Nurse(s)/ Other Personnel: Cat Concepcion RN (RN) RICHARD Doan (speeder machine operator) Instrument: [id number] ([id number]) Date: 1955 (51 years) Account: [id number] History: Please see office H&P Medications: Meperidine [...] on 07/09/2006 12:58:26 PM Patient: SANDY SPENCER ([id number] ) Social History Tobacco Use Types Packs/Day [...] Depression Annual Screen Completed 025, 04/26/2014 (Declined) [id number] Discontinued Procedures Procedure Name Priority Date/Time Associated Diagnosis Comments REFERRAL SCANNED DOCUMENT 10/05/2024 3:00 AM EDT LAB SCANNED DOCUMENT 09/08/2024 3:00 AM EDT IMAGING SCANNED DOCUMENT 09/08/2024 3:00 AM EDT IMAGING [...] Health Maintenance Results * REFERRAL SCANNED DOCUMENT (10/05/2024 3:00 AM EDT) Only the most recent of2 resultswithin the time period is included. 10/05/2024 3:00 AM EDT Meshfirekin PA-C SCAN REFERRAL Final Result * LAB SCANNED DOCUMENT (09/08/2024 3:00 AM EDT) Only the most recent of2 resultswithin the time period is included. 09/08/2024 3:00 AM EDT StayClassy PA-C SCAN LAB Final Result * IMAGING SCANNED DOCUMENT (09/08/2024 3:00 AM EDT) Only the most recent of4 resultswithin the time period is included. 09/08/2024 3:00 AM EDT Shook Lukin PA-C SCAN IMAGING Final Result * (ABNORMAL) LIPID PANEL (09/08/2023 1:27 PM EDT) CHOLESTEROL, TOTAL 228(H) <200 mg/dL [facility] HDL CHOLESTEROL 41 > OR = 40 mg/dL [facility] TRIGLYCERIDES 182(H) <150 mg/dL [facility] LDL-CHOLESTEROL 155(H) 99 mg/dL (calc) [facility] Comment: Reference range: <100 Desirable range <100 mg/dL for primary prevention; <70 mg/dL for patients with CHD or diabetic patients with > or = 2 CHD risk factors. LDL-C is now calculated using the Luisa calculation, which is a validated novel method providing better accuracy than the Friedewald equation in the estimation of LDL-C. Eliezer SS et al. JACOB. 2013;310(19): 5516-2425 (http://education.Etonkids/faq/BWA403) CHOL/HDLC RATIO 5.6(H) <5.0 (calc) [facility] NON-HDL CHOLESTEROL 187(H) <130 mg/dL (calc) [facility] Comment: For patients with diabetes plus 1 major ASCVD risk factor, treating to a non-HDL-C goal of <100 mg/dL (LDL-C of <70 mg/dL) is considered a therapeutic option. Blood Blood / Unknown 09/08/2023 1 :27 PM EDT 09/08/2023 1:28 PM EDT Narrative [facility] - 09/09/2023 3:52 AM EDT FASTING:NO Sowmya Odom PA-C LAB - BLOOD DRAW Final Resul t [facility] [address] [place] [id number], [facility] [address] [place] [id number] * HISTORIC COLONOSCOPY (03/24/2023 3:00 AM EST) 03/24/2023 3:00 AM EST us Sowmya Odom PA-C PROCEDURES Final Result * (ABNORMAL) HEPATITIS A,B,C PANEL (05/14/2013 9:18 AM EST) HEPATITIS B SURFACE ANTIBODY NEGATIVE NEGATIVE [facility] HEPATITIS B SURFACE ANTIGEN NEGATIVE NEGATIVE [facility] HEPATITIS C VIRUS ANTIBODY NEGATIVE NEGATIVE [facility] HEPATITIS A ANTIBODY TOTAL POSITIVE(A) NEGATIVE [facility] HEPATITIS B CORE ANTIBODY NEGATIVE NEGATIVE [facility] Blood specimen (specimen) Blood / Unknown 05/14/2013 9:18 AM EST 05/14/2013 9:18 AM EST Narrative [facility] - 05/16/2013 8:53 AM EST [facility] [address] [place] [address] PT ID [id number] ORD# [id number] us Sowmya Odom PA-C LAB - BLOOD DRAW Edited [facility] [address] [place] [address], from Last 3 Months or Most Recently Relevant to Health Maintenance Insurance [facility] VELIA GARCIA [id number] Care Teams Land Acquisition Manager Relationship Specialty Start Date End Date Sowmya Odom PA-C [address] [place] [address] PCP - General Internal Medicine 05/10/13
== END 2024-10-31 16:37 | disposition home or self-care (01) ==
LOC: HO.HUSH 15:36
PROVIDERS: PCP Physician Assistant; Visit Provider Nurse Practitioner Family
DX: R10.2 Pelvic and perineal pain (principal); N41.9 Inflammatory disease of prostate, unspecified; Z13.9 Encounter for screening, unspecified
CPT/HCPCS: 99204

== ENCOUNTER → 2024-10-31 15:36 | Outpatient (BNVA) | payer OTHER, SELFPAY | PROVIDERS: PCP Physician Assistant; Visit Provider Nurse Practitioner Family | DX: R10.2 Pelvic and perineal pain (principal); N41.9 Inflammatory disease of prostate, unspecified; R31.29 Other microscopic hematuria | CPT/HCPCS: 81003; 99202 ==

== ENCOUNTER 2024-12-13 08:17 | Outpatient (AMB) | payer OTHER, SELFPAY ==
--- NOTE | 2024-12-13 08:19 | A.OFFVIS_ITS ---
Intake Visit Reasons: Follow up/PVR Intake Note: Patient is present for PVR F/U Urology Medication:TAMSULOSIN Antibiotic Allergy:NONE Blood Thinner:NONE Todays PVR:0ML'S Regional Education Manager Required: No Allergies tramadol Adverse Reaction (Severe, Verified 12/13/24 08:20) Itching HPI Comments Details: Wesley is a pleasant 69-year-old Irish-speaking male patient of Dr. Odom was accompanied by his daughter at today's office visit in his requesting translation to be provided by his daughter. He has a past medical history of herniated cervical disc, headaches, rotator cuff, and hypertension. He presents to the office today for a follow up. Of note, patient was seen approximately 6 weeks ago as a new patient for ongoing lower urinary tract symptoms he has been experiencing at which time in office JYOTHI was performed and prostate was noted to be boggy in recommendations were made for treatment of prostatitis. In discussion with the patient today he reports completing antibiotic therapy as prescribed however did not feel any improvement in bladder pressure in discomfort he has been experiencing. He discusses his longstanding history of suprapubic discomfort over the last 2-2 and half years. He reports symptoms started after a fall in his back. Recent CT of the abdomen and pelvis with IV contrast 09/07 noted no renal calculi are identified. There is no hydronephrosis or renal masses identified. No abdominal or pelvic lymphadenopathy. The urinary bladder is unremarkable. The prostate is normal size. He reports pain is more notable when sitting and feels it is somewhat relieved when standing. He reports initially pain started in the suprapubic area however feels at times it radiates to his umbilicus. He reports having previously followed up with [facility] at which time he was noted to have microscopic hematuria and had further workup. He reports having had an office cystoscopy many years ago that was noted to be within normal limits however has recently followed up with pain management here at [facility] and was requesting a 2nd opinion. In office urinalysis results reviewed with the patient today. No microscopic hematuria noted. In review of patient's chart it appears PSA 08/07 0.6. JYOTHI during last office visit noted enlarged and boggy otherwise no nodules or masses palpated. We did discussed potential causes of suprapubic pain patient is experiencing. We discussed acute versus chronic prostatitis. He denies any bothersome urinary issues. He denies urinary urgency, urinary frequency, incontinence, nocturia, hematuria, dysuria, foul smelling urine, changes to urinary stream, flank pain, fever, and or chills. He is happy with his current voiding parameters. All questions were answered. He otherwise offers no other issues or concerns at this time. [facility] Medical History Herniated cervical disc Rotator cuff arthropathy HTN (hypertension) Surgical History H/O hemorrhoidectomy Social History Alcohol intake: never Patient Tobacco Use Status: Never used Tobacco Review of Systems Const All systems reviewed & are unremarkable except as noted in HPI and below Physical Exam Const General: cooperative, healthy appearing, comfortable, no acute distress, well developed, alert and awake Nutritional Appearance: overweight Orientation/consciousness: patient oriented x3 Limitations: language barrier HEENT Head: Yes normal to inspection, Yes normocephalic and Yes atraumatic Ears: hearing grossly normal bilaterally Eyes General: appearance normal, both eyes and all related structures Neck Neck: Yes normal visual inspection and Yes trachea midline Chest Chest palpation & inspection: normal inspection of the chest Resp Effort & Inspection: normal respiratory effort and able to speak in complete sentences Cardio Rate: regular rate GI Inspection: Yes normal to inspection General: Yes no CVA tenderness Back/Spine/Pelvis Back: no CVA tenderness Skin General skin exam: no rashes or lesions noted Neuro General: patient oriented x3 Extrem General: Yes normal to inspection Psych Appearance: grossly normal and well kempt Mental Status: mental status grossly normal Speech and movement: Normal speech and movement present and Clear speech present Affect: normal affect Attitude: cooperative Thought process: Normal thought process present Thought content: Normal thought content present Insight: Fair insight present (Psych) Judgement: Fair judgement present (Psych) Office Procedures Post Void Residual Post Residual Void Post Void Residual (PVR): 0 [id number] Void Residual by ultrasound Results AMB Urinalysis, Automated UA Leukoctes 0 Ajit/uL Last Edit by BETO Lake on 12/13/24 09:21 UA Nitrite Last Edit by BETO Lake on 12/13/24 09:21 UA Urobilinogen 0.2 mg/dL Last Edit by BETO Lake on 12/13/24 09:2 1 UA Protein 0 mg/dL Last Edit by BETO Lake on 12/13/24 09:21 UA pH 6.0 Last Edit by BETO Lake on 12/13/24 09:21 UA Blood 0 Feliberto/uL Last Edit by BETO Lake on 12/13/24 09:21 UA Specific [place] 1.025 Last Edit by BETO Lake on 12/13/24 09: 21 UA Ketone Last Edit by BETO Lake on 12/13/24 09:21 UA Bilirubin 0 mg/dL Last Edit by BETO Lake on 12/13/24 09:21 UA Glucose 0 mg/dL Last Edit by BETO Lake on 12/13/24 09:21 Results Reviewed Results Reviewed: Laboratory Last Values Urine pH (Auto) 6.0 12/13/24 09:07 Specific [place] (Auto) 1.025 12/13/24 09:07 Urine Protein (Auto) 0 mg/dL 12/13/24 09:07 Glucose (UA)(Auto) 0 mg/dL 12/13/24 09:07 Urine Blood (Auto) 0 Feliberto/uL 12/13/24 09:07 Urine Bilirubin (Auto) 0 mg/dL 12/13/24 09:07 Urine Urobilinogen (Auto) 0.2 mg/dL 12/13/24 09:07 Leukocyte Esterase (Auto) 0 Ajit/uL 12/13/24 09:07 Assessment & Plan Assessment & Plan (1) Suprapubic abdominal pain: Code(s): R10.2 - Pelvic and perineal pain Category: Medical (2) Prostatitis: Code(s): N41.9 - Inflammatory disease of prostate, unspecified Category: Medical Plan In office urinalysis results with the patient today; as noted above. PVR 0 mL. Will discontinue tamsulosin as patient reported headaches. We did discussed potential causes of bladder discomfort and bladder pressure; we discussed further treatment options and risks and benefits of these treatment options. Start VESIcare as discussed and prescribed. We discussed bladder triggers and irritants. Follow-up next available in office cystoscopy for further assessment evaluation. Follow-up per doctor's orders; or sooner with any issues, concerns, and or questions. Orders: Orders AMB Urinalysis Automated Today Z13.9 - Encounter for screening, unspecified Medications: New solifenacin (Vesicare) 5 mg PO DAILY 30 tabs 3RF 30 days Patient Instructions: The patient had an opportunity to ask questions regarding the treatment plan. All questions were answered. Physical exam, labs, and imaging were discussed and reviewed in detail. As well as risks, benefits, and discussion of treatment choices. No major barriers to understanding were identified. The patient expressed understanding and agreement with the above treatment plan. The patient was made aware they should contact our office by phone for worsening of their current condition, the appearance of new symptoms, or with any questions or concerns. Compliance is encouraged with any medications and follow up testing that is ordered. It is a privilege to be allowed the opportunity to participate in? your urological care.? Again, if you have any questions or concerns If you have any questions or concerns please do not hesitate to contact me. The office is [phone]. This note is constructed using voice recognition software. While every effort has been made to ensure accuracy golf club head former errors may have been included. Yours sincerely, JONATHAN Vail Coding Level of Care Code Est Pt Level 4 (70249) Diagnoses Suprapubic abdominal pain R10.2 Prostatitis N41.9 CPT Codes Post Residual Void - PVR CPT Code: 51800-Jyqr Void Residual by ultrasound ([id number])
--- OUTSIDE RECORDS SUMMARY | 2024-12-13 08:33 | XMS_ITS | Clinical Summary ---
Author Organization [facility] Address [address] [place] [address] Care Team Providers Care Bottom Finisher Name Role Phone Sowmya Odom PA-C Primary Care Provider [phone] Source Comments PLEASE NOTE, if this patient [...] by miscellaneous route daily. Personal care wipes, notb663/month, dx bowel and bladder care 200 Each 12/25/19 24 Active MISCELLANEOUS MEDICAL SUPPLY MISCIndications:Mi xed incontinence by miscellaneous route daily. Adult pull ups disp 120/month, dx mixed incontinence 120 Each 12/25/19 24 Active MISCELLANEOUS MEDICAL SUPPLY MISCIndications:Mi xed incontinence by miscellaneous route daily. Large gloves, vnzj108/month, dx mixed incontinence 100 Each 12/25/19 24 Active ketoconazole (NIZORAL) 2 % shampooIndications :Tinea versicolor Apply topically once daily as needed for itching 120 mL 6 01/28/20 24 Active MISCELLANEOUS MEDICAL SUPPLY MISCIndications:Ch ronic low back pain without sciatica, unspecified back pain laterality by miscellaneous route daily. Juve cruz, disp 60/month, dx osteoarthritis, [facility] fax [phone]. 60 Each 01/28/20 24 Active lidocaine (LIDODERM) [...] Pulmonary nodule, left on CX R 03/02/2017 [facility] 03/17/2017 Rotator cuff tear, right, [...] on 05 Aug 2013 12:14 Encounter info: [id number], [facility] - * Final Report * Reason For Exam LBP with right lateral LE pain/Numbness;LBP with right lateral LE pain/Numbness RESULT: MRI Lumbar Spine W/O Contrast [facility] VISIT NUMBER :[id number] PATIENT NAME : Sandy Spencer DATE OF : 1955 DATE OF EXAM : 08/05/2013 REFERRING PHYSICIAN : [facility] [address] [place], [place] [address] RESULTS PREFERENCE : Reports via Fax to [phone]. Images on CD via Mail. Secure access to reports and images at [email or web address] for manager medical affairs. EXAM : MR - LUMBAR SPINE (C-) CPT 10813 - Final Report HISTORY: Lower back pain [...] on 16 November 2013 22:19 Encounter info: [id number], [facility], One Time OP, 11/16/2013 - 11/16/2013 Contributor system: NUANCE * Final Report * EMG Nerve Conduction Study (Verified) [facility] ELECTROMYOGRAPHY REPORT Referring Provider: Yeyo Pascal M.D. EMG Physician: Yaron Valdez M.D. veneer patcher: AV Date of Study: 11/16/2013 Limb Temperature: Warmed with hot packs to greater than 34 C Height: 5' 8 Weight: 190 lbs Order ID: [id number] IMPRESSION: The study is normal. There is no evidence of a right midlumbar to upper sacral radiculopathy, plexopathy or distal right lower extremity polyneuropathy. 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 He has right lower back pain that [...] of comparison to the right side. A Ethiopian x ray service engineer was present during testing. His granddaughter, Evette, [...] Transcribed: 11/16/2013 18:53:00 Transcribed by: EMERALD DocID: [id number] PRELIMINARY REPORT UNLESS MANUALLY/ELECTRONICALLY SIGNED CC:Obed Chavira M.D. [facility] [address] [place] [address], [address] Yeyo Pascal M.D. [address], [address] [place], [address] S/P colonoscopy 200604/26/2014 Overview (04/26/2014): Result type: Special Procedure/Gastro Note Result date: 09 July 2006 1:45 Result status: Auth (Verified) Result title: NOTE Encounter info: [id number], [facility], 07/09/2006 - 07/09/2006 Contributor system: Glow * Final Report * NOTE Colonoscopy Report Endoscopist(s): Ronaldo Lam MD Date: June Ref. Phys.: GALINA MURRIETA MD; Juan Luis Osman MD Patient: SANDY SPENCER Assisting Nurse(s)/ Other Personnel: Cat Concepcion RN (RN) RICHARD Doan (power manager) Instrument: [id number] ([id number]) Date: 1955 (51 years) Account: [id number] History: Please see office H&P Medications: Meperidine [...] on 07/09/2006 12:58:26 PM Patient: SANDY SPENCER ([id number] ) Encounters Date Type Department Care Team Description 11/23/2024 Erroneous Telephone Encounter [facility] [address] [place] [address] Milly Acevedo, Medical Records from Last 3 Months Social History Tobacco [...] 1 04/27/2024 Safety and Environment Answer Date Specner rded Safety 0 01/21/2023 Utilities Answer Date [...] Depression Annual Screen Completed 025, 04/26/2014 (Declined) [id number] Discontinued Procedures Procedure Name Priority Date/Time Associated Diagnosis Comments REFERRAL SCANNED DOCUMENT 10/31/2024 3:00 AM EDT REFERRAL SCANNED DOCUMENT 10/05/2024 3:00 AM EDT LIPID PANEL Routine 09/08/2023 1:27 PM EDT Suprapubic pain Bladder wall thickening Chronic low back pain without sciatica, unspecified back pain laterality Non morbid obesity HISTORIC COLONOSCOPY 03/24/2023 3:00 AM EST HEPATITIS A,B,C PANEL Routine 05/14/2013 9:18 AM EST Dizziness from Last 3 Months or Most Recently Relevant to Health Maintenance Results * REFERRAL SCANNED DOCUMENT (10/31/2024 3:00 AM EDT) Only the most recent of2 resultswithin the time period is included. 10/31/2024 3:00 AM EDT Sowmya Odom PA-C SCAN REFERRAL Final Result * (ABNORMAL) LIPID PANEL (09/08/2023 1:27 PM EDT) CHOLESTEROL, TOTAL 228(H) <200 mg/dL [email or web address] HDL CHOLESTEROL 41 > OR = 40 mg/dL [email or web address] TRIGLYCERIDES 182(H) <150 mg/dL [email or web address] LDL-CHOLESTEROL 155(H) 99 mg/dL (calc) [email or web address] Comment: Reference range: <100 Desirable range <100 mg/dL for primary prevention; <70 mg/dL for patients with CHD or diabetic patients with > or = 2 CHD risk factors. LDL-C is now calculated using the Eliezer-Aron calculation, which is a validated novel method providing better accuracy than the Friedewald equation in the estimation of LDL-C. Eliezer EDOUARD et al. JACOB. 2013;310(19): 7275-9248 (http://education.TermScout/faq/IUR073) CHOL/HDLC RATIO 5.6(H) <5.0 (calc) [facility] NON-HDL CHOLESTEROL 187(H) <130 mg/dL (calc) [facility] Comment: For patients with diabetes plus 1 major ASCVD risk factor, treating to a non-HDL-C goal of <100 mg/dL (LDL-C of <70 mg/dL) is considered a therapeutic option. Blood Blood / Unknown 09/08/2023 1 :27 PM EDT 09/08/2023 1:28 PM EDT Narrative [facility] - 09/09/2023 3:52 AM EDT FASTING:NO Sowmya Odom PA-C LAB - BLOOD DRAW Final Resul t [employer] [facility] [address] [address], [employer] [address] [address] * HISTORIC COLONOSCOPY (03/24/2023 3:00 AM EST) 03/24/2023 3:00 AM EST Sowmya Odom PA-C PROCEDURES Final Result * (ABNORMAL) HEPATITIS A,B,C PANEL (05/14/2013 9:18 AM EST) HEPATITIS B SURFACE ANTIBODY NEGATIVE NEGATIVE [facility] HEPATITIS B SURFACE ANTIGEN NEGATIVE NEGATIVE [facility] HEPATITIS C VIRUS ANTIBODY NEGATIVE NEGATIVE [facility] HEPATITIS A ANTIBODY TOTAL POSITIVE(A) NEGATIVE [facility] HEPATITIS B CORE ANTIBODY NEGATIVE NEGATIVE [facility] Blood specimen (specimen) Blood / Unknown 05/14/2013 9:18 AM EST 05/14/2013 9:[address] [facility] - 05/16/2013 8:53 AM EST [employer] [address] [place] [address] [place] [id number] ORD# [id number] Sowmya Odom PA-C LAB - BLOOD DRAW Edited Performing Organization Address City/Va Hospital/ZIP Co de Phone Number [address] [address], from Last 3 Months or Most Recently Relevant to Health Maintenance Insurance [facility] Care Teams Bottom Finisher Relationship Specialty Start Date End Date Sowmya Odom PA-C [facility] [place] [address] PCP - General Internal Medicine 05/10/13
== END 2024-12-13 08:57 | disposition home or self-care (01) ==
LOC: HO.HUSH 08:17
PROVIDERS: PCP Physician Assistant; Visit Provider Nurse Practitioner Family
DX: R10.2 Pelvic and perineal pain (principal); N41.9 Inflammatory disease of prostate, unspecified; Z13.9 Encounter for screening, unspecified
CPT/HCPCS: 99214

== ENCOUNTER → 2024-12-13 08:17 | Outpatient (BNVA) | payer OTHER, SELFPAY | PROVIDERS: PCP Physician Assistant; Visit Provider Nurse Practitioner Family | DX: R10.2 Pelvic and perineal pain (principal); N41.9 Inflammatory disease of prostate, unspecified | CPT/HCPCS: 51798; 81003; 99212 ==